=== PATIENT | male | born 1960 | race Hispanic/Latino ===

== ENCOUNTER 2016-09-09 10:09 | Inpatient (IN) | payer MEDICAID ==
--- NOTE | 2016-09-09 10:30 | C.PDOC ---
History Of Present Illness 56 year old patient presents to the ED complaining of depression and thoughts of dying. Patient is requesting to be admitted. Patient also notes he has not been eating well because he has no appetite. Patient denies all other complaints at this time. Time Seen by Provider: 09/09/16 10:29 Chief Complaint (Nursing): Psychiatric Evaluation History Per: Patient History/Exam Limitations: no limitations Onset/Duration Of Symptoms: Other Current Symptoms Are (Timing): Still Present Suicide/Self Injury Attempted (Context): None Modifying Factor(s): None Severity: None Pain Scale Rating Of: 0 Associated Symptoms: Depression, Suicidal Thoughts Recent travel outside of the [place]: No Past Medical History Reviewed: Historical Data, Nursing Documentation, Vital Signs Vital Signs: Last Vital Signs Temp 98.2 F 09/09/16 10:19 Pulse 71 09/09/16 10:19 Resp 17 09/09/16 10:19 BP 113/76 09/09/16 10:19 Pulse Ox 100 09/09/16 14:08 - Medical History PMH: Anxiety, Bipolar Disorder, Bronchitis, Depression, Pneumonia, Schizophrenia Surgical History: Appendectomy - [facility] Procedures PSYCHIAT DRUG THERAP NEC (12/05/14) VACCINATION NEC (12/16/14) Family History: States: Unknown Family Hx - Social History Hx Tobacco Use: No Hx Alcohol Use: Yes (drink 2 beers 3x a week) Hx Substance Use: Yes (coccaine) - Immunization History Hx Tetanus Toxoid Vaccination: No Hx Influenza Vaccination: No Hx Pneumococcal Vaccination: No Review Of Systems Except As Marked, All Systems Reviewed And Found Negative. Psych: Positive for: Suicidal ideation Physical Exam - Physical Exam Appears: Non-toxic, No Acute Distress Skin: Warm, Dry Head: Atraumatic, Normacephalic Oral Mucosa: Moist Neck: Normal ROM, Supple Chest: Symmetrical Cardiovascular: Rhythm Regular Respiratory: Normal Breath Sounds, No Rales, No Rhonchi, No Wheezing Back: Normal Inspection Extremity: Normal ROM Neurological/Psych: Oriented x3 Gait: Steady ED Course And Treatment - Laboratory Results Result Diagrams: 09/09/16 10:45 09/09/16 10:45 Lab Interpretation: Abnormal (hypokalemia) O2 Sat by Pulse Oximetry: 100 (room air) Pulse Ox Interpretation: Normal Progress Note: Plan: Labs. Pt seen by clearing tub worker, Dr. Smith accepted the pt. Recommend internal med consultation for hypokalemia. Disposition Counseled Patient/Family Regarding: Studies Performed, Diagnosis - Disposition Disposition: HOSPITALIZED Disposition Time: 14:02 Condition: STABLE - POA Present On Arrival: None - Clinical Impression Clinical Impression: Hypokalemia, Depression - PA / [employer] / Resident Statement MD/DO has reviewed & agrees with the documentation as recorded. - Scribe Statement The provider has reviewed the documentation as recorded by the Scribe Alexandra Tidwell All medical record entries made by the Scribe were at my direction and personally dictated by me. I have reviewed the chart and agree that the record accurately reflects my personal performance of the history, physical exam, medical decision making, and the department course for this patient. I have also personally directed, reviewed, and agree with the discharge instructions and disposition. Decision To Admit - Pt Status Changed To: Hospital Disposition Of: Inpatient - Admit Certification Admit to Inpatient:: After my assessment, the patient will require hospitalization for at least two midnights. This is because of the severity of symptoms shown, intensity of services needed, and/or the medical risk in this patient being treated as an outpatient. - InPatient: Physician Admission Certification: I certify that this patient requires 2 or more midnights of care for the following reason:: see the note - . Bed Request Type: Psychiatry Admitting Physician: Jeffery Marcum Patient Diagnosis: Hypokalemia, Depression
[2016-09-09 10:50] LABS: BASO % 0.4 % (0.0-2.0); EOS # 0.3 K/uL (0.0-0.7); EOS % 3.6 % (0.0-4.0); HEMATOCRIT 42.4 % (35.0-51.0); LYMPH # 2.2 K/uL (1.0-4.3); LYMPH % 27.8 % (20.0-40.0); MEAN CELL VOLUME 93.9 fL (80.0-94.0); MEAN CORPUSCULAR HEMOGLOBIN 31.4 pg (27.0-31.0); MEAN CORPUSCULAR HGB CONC 33.4 g/dL (33.0-37.0); MEAN PLATELET VOLUME 8.4 fL (7.2-11.7); MONO # 0.6 K/uL (0.0-0.8); MONO % 7.6 % (0.0-10.0); RED CELL DISTRIBUTION WIDTH 12.5 % (11.5-14.5); WHITE BLOOD COUNT 7.9 K/uL (4.8-10.8)
[2016-09-09 10:58] LABS: RBC URINE < 1 /hpf (0-3); URINE BILIRUBIN NEGATIVE (NEGATIVE); URINE BLOOD NEGATIVE (NEGATIVE); URINE COLOR Yellow (YELLOW); URINE GLUCOSE (UA) NORMAL (Normal); URINE KETONE NEGATIVE (NEGATIVE); URINE LEUKOCYTE ESTERASE NEG Leu/uL (Negative); URINE PROTEIN NEGATIVE (NEGATIVE); URINE UROBILINOGEN NORMAL mg/dL (0.2-1.0); WBC URINE 1 /hpf (0-5)
[2016-09-09 11:04] LABS: CHLORIDE 99 mmol/L (98-107); POTASSIUM 3.1 mmol/L (3.6-5.2); SODIUM 140 mmol/L (132-148)
[2016-09-09 11:06] LABS: AST/SGOT 27 U/L (17-59); BILIRUBIN,TOTAL 0.5 mg/dL (0.2-1.3); CARBON DIOXIDE 25 mmol/L (22-30); GFR AFRICAN-AMERICAN > 60
[2016-09-09 11:07] LABS: ALB/GLOB RATIO 1.5 (1.0-2.1); ALKALINE PHOSPHATASE 44 U/L (38-126); ALT/SGPT 19 U/L (21-72); BLOOD UREA NITROGEN 17 mg/dL (9-20); CALCIUM 8.3 mg/dl (8.6-10.4); GLUCOSE,RANDOM 102 mg/dL (75-110); TOTAL PROTEIN 7.1 g/dL (6.3-8.3)
[2016-09-09 11:08] LABS: ALCOHOL SERUM < 10 mg/dl (0-10)
[2016-09-09] MEDS ORDERED: Potassium Chloride 20 mEq/15 ml LIQ UD PO STA (14:00)
[2016-09-09] MEDS ORDERED: Potassium Chloride 20 mEq ER Tab PO ONE (14:22)
[2016-09-09] MEDS ORDERED: Potassium Chloride 20 mEq ER Tab PO STA (14:26)
--- NOTE | 2016-09-10 18:36 | PCM.PSYCH ---
Initial Psychiatric Evaluation - Initial Psychiatric Evaluation Type of Admission: Voluntary Legal Status: Capacity Chief Complaint (in patient's own words): "I'm depressed." History of Present Illness and Precipitating Events: Patient seen and evaluated, chart reviewed and discussed with nurse. He is a 56 yo LM, , has 3 adult children, is homeless, unemployed and receives social security. Patient denies any legal issues. Denies past suicidal attempts and wanting to hurt others. Feels disappointed he lost his apartment, denies feeling angry, agitated. Denies feelings of helplessness, hopelessness. Patient was experiencing anxiety and panic attacks which he says caused him to walk for 2 days, causing his body to be in pain. Reports sleeping well and good appetite. Was hospitalized at [facility] 1 year ago for depression, anxiety, panic attacks. Reports sometimes feeling people can read his mind and thoughts. Admits feeling strangers were following him and out to get him in the past, does not know why they were doing so, but does not currently feel this way. Denies auditory and visual hallucinations. Patient admits to using cocaine and alcohol. Reports current withdrawal symptom of body aches. Denies chest pain, shortness of breath, nausea, vomiting , abdominal pain, shaking, sweating, cold/heat intolerance. Began using cocaine via snorting 30 years ago, last used 2 days ago, averaged 1g per day. Began alcohol 3 years ago, last used 2 days ago, averages 1 beer per day. Denies heroin, marijuana, tobacco use. Patient was sober for 5 years during [id number] and is unsure why he relapsed. Detox at [facility] 3 years ago and [facility] [place]. States he has never gone to rehab. Plan after discharge includes [facility]. Current Medications: Active Medications Generic Name Dose Route Start Last Admin Trade Name Freq PRN Reason Stop Dose Admin Acetaminophen 650 mg 09/09/16 15:59 Tylenol 325mg Tab PO Q6 PRN Fever >100.4 F Aripiprazole 5 mg 09/09/16 22:00 09/09/16 21:18 Abilify PO 5 mg HS ROSS Administration Benztropine Mesylate 2 mg 09/09/16 15:59 Cogentin PO Q6 PRN Extra Pyramidal Symptoms Dicyclomine HCl 10 mg 09/09/16 15:59 Bentyl PO Q6 PRN Muscle spasm Diphenhydramine HCl 50 mg 09/09/16 15:59 Benadryl PO Q6 PRN Extra Pyramidal Symptoms Gabapentin 100 mg 09/09/16 18:00 09/10/16 18:01 Neurontin PO 100 mg TID ROSS Administration Haloperidol 5 mg 09/09/16 15:59 Haldol PO Q8 PRN Moderate Agitation Haloperidol Lactate 5 mg 09/09/16 15:59 Haldol IM Q8 PRN Moderate Agitation Lorazepam 1 mg 09/09/16 15:59 09/10/16 18:01 Ativan PO 1 mg Q6 PRN Administration Anxiety Paroxetine HCl 10 mg 09/10/16 10:00 09/10/16 10:14 Paxil PO 10 mg DAILY ROSS Administration Trazodone HCl 50 mg 09/09/16 22:00 09/09/16 21:16 Desyrel PO 50 mg HS ROSS Administration Past Psychiatric History - Past Psychiatric History Previous Treatment History: Inpatient Prior Professional Help: Psychiatrist Prior Psychiatric Treatment: Detox, Hospitalization At what hospital: [facility], [facility] Nature of Treatment: depression, anxiety, panic attacks, cocaine and alcohol abuse History of ETOH/Drug Use: Began using cocaine via snorting 30 years ago, last used 2 days ago, averaged 1g per day. Began alcohol 3 years ago, last used 2 days ago, averages 1 beer per day. Denies heroin, marijuana, tobacco use. Patient was sober for 5 years during [id number] and is unsure why he relapsed. Detox at [facility] 3 years ago and [facility] 2 years ago. States he has never gone to rehab. History of Family Illness: Family Psychiatric Hx: Brother is diagnosed with schizophrenia, sister is diagnosed with bipolar disorder and delusional disorder. Family Hx: Brother and sister abuse cocaine. Pertinent Medical Hx (Current Medical&Sleep Prob, Allergies): Allergies Allergy/AdvReac Type Severity Reaction Status Date / Time No Known Allergies Allergy Verified 09/09/16 10:16 PARoxetine [Paxil] 10 mg PO DAILY #30 tab 03/26/15 ARIPiprazole [Abilify] 10 mg PO DAILY 09/09/16 Aspirin [Ecotrin] 81 mg PO DAILY 09/09/16 Clopidogrel [Plavix] 75 mg PO DAILY 09/09/16 Allergies: NKDA PMH: 2 CVAs about 1.5 years ago, stage 2 gene mutation Medications: Abilify 10mg, Paxil 10mg, Plavix, Aspirin 81mg Psych Hx: Diagnosed with panic and anxiety disorder, bipolar disorder with psychotic features. Seen Dr. Rodriguez as psychiatrist. Psychiatric Hospitalization Hx: At [facility] 1 year ago for depression, anxiety, panic attacks. States he was hospitalized 15 times. Review of Systems - Psychiatric Psychiatric: Abnormal Sleep Pattern, Anxiety, Depression, Panic Attacks, Paranoia. absent: Hallucinations, Homicidal Ideation, Suicidal Ideation Mental Status Examination - Personal Presentation Personal Presentation: Looks stated age - Affect Affect: Constricted - Motor Activity Motor Activity: Calm - Reliability in Providing Information Reliability in Providing Information: Good - Speech Speech: Organized - Mood Mood: Depressed, Anxious - Formal Thought Process Formal Thought Process: Paranoia - Cognitive Functions Orientation: Person, Place, Situation, Time Sensorium: Alert Attention/Concentration: Attentive Estimate of Intelligence: Average Judgement: Intact, as evidence by: Insight regarding need for hospitalization Memory: Recent intact, as evidence by: Ability to recall events of the day, Remote intact, as evidenced by: Abilit to recall sig. life events - Risk Risk: Diminished functioning - Strength & Assets Inventory Strength & Assets Inventory: Cooperative DSM 5 DX - DSM 5 DSM 5 Diagnosis: Bipolar - depressed r/o Major dep with psychotic feat. r/o schizoaffective d/o Cocaine use d/o Cannabis use d/o Alcohol use d/o - Recommended/Plan of Treatment Treatment Recommendations and Plan of Treatment: Depression/Bipolar - Lexapro - Abilify -Attend groups -indiv tx NOÉ: -AL -Attend groups -Monitor wdw sx 33 min Projected ELOS: 5 days Prognosis: good - Smoking Cessation Smoking Cessation Initiated: Yes
--- NOTE | 2016-09-11 16:52 | PCM.PYCHPN ---
Psychiatric Progress Note - Psychiatric Progress Note Patient seen today, length of contact: 15 min Patient Chief Complaint: "I feel tired and depressed." Problems Identified/Issues Discussed: The pt is seen, chart reviewed, case discussed with staff. Pt feels tired and depressed. Feels anxious because he is homeless. Says detox is the same and his symptoms include general body pain, abdominal pain, body aches, headaches, fever, sweating, chills, cold and heat intolerance. Denies having a plan but has vague SI. Contracts for safety and will follow safety plan. Denies homicidal ideation. Reports hearing 1-2 male and female voices that yell and curse at him. Denies visual hallucinations. Admits to feeling like people are out to get him, following him, reading his mind and thoughts. Pt has difficulty sleeping and a good appetite. Denies side effects to medication. Plans to go to a rehab or a program after discharge. Support and psychoeducation given. Medication Change: Yes (increase abilify) Medical Record Reviewed: Yes Mental Status Examination - Cognitive Function Orientation: Person, Place, Situation, Time Memory: Intact Attention: Poor Concentration: Poor Association: WNL Fund of Knowledge: WNL - Mood Mood: Depressed, Anxious - Affect Affect: Constricted - Speech Speech: Soft - Formal Thought Process Formal Thought Process: Hallucinations, Paranoia - Suicidal Ideation Suicidal Ideation: Yes Plan: Denies plan. States "Won't do it". - Homicidal Ideation Homicidal Ideation: No Goal/Treatment Plan - Goal/Treatment Plan Need for Continued Stay: Severe depression anxiety, Discharge may exacerbated symptoms, Severe functional impairment Progress Toward Problem(s) and Goals/Treatment Plan: Depression/Bipolar - Lexapro 10 - Abilify increased to 15 -Attend groups -indiv tx NOÉ: -NE -Attend groups -Monitor wdw sx Estimated Date of D/C: 09/14/16
--- NOTE | 2016-09-12 16:44 | PCM.PYCHPN ---
Psychiatric Progress Note - Psychiatric Progress Note Patient seen today, length of contact: 15 min Patient Chief Complaint: "My of my body hurts" Problems Identified/Issues Discussed: The pt is seen, chart reviewed, case discussed with staff. Patient feels anxious about feeling homeless and is experiencing withdrawal symptoms including body aches, headache, abdominal pain, nausea. Reports detox is going well, slept well and has a good appetite. Reports a dry throat as a side effect of his medication. Patient no longer has auditory hallucinations, last heard voices yesterday morning. Admits to feeling like people are following him, out to get him, able to read his mind and thoughts. Plans after discharge include going to [facility]. General impression includes improvement in speech, organization, affect. Support and psychoeducation given. Medication Change: Yes (increase abilify) Medical Record Reviewed: Yes Mental Status Examination - Cognitive Function Orientation: Person, Place, Situation, Time Memory: Intact Attention: Poor Concentration: Poor Association: WNL Fund of Knowledge: WNL - Mood Mood: Depressed, Anxious - Affect Affect: Constricted - Speech Speech: Appropriate - Formal Thought Process Formal Thought Process: Paranoia - Suicidal Ideation Suicidal Ideation: No - Homicidal Ideation Homicidal Ideation: No Goal/Treatment Plan - Goal/Treatment Plan Need for Continued Stay: Severe depression anxiety, Discharge may exacerbated symptoms, Severe functional impairment Progress Toward Problem(s) and Goals/Treatment Plan: Depression/Bipolar - Lexapro 10 - Abilify increased to 15 -Attend groups -nikki mendez NOÉ: -AL -Attend groups -Monitor wdw sx Estimated Date of D/C: 09/14/16
[2016-09-13] MEDS ORDERED: Tramadol 25 mg PO PRN (11:14)
--- NOTE | 2016-09-13 14:04 | PCM.PYCHPN ---
Psychiatric Progress Note - Psychiatric Progress Note Patient seen today, length of contact: 15 min Patient Chief Complaint: "My body aches are getting better" Problems Identified/Issues Discussed: The pt is seen, chart reviewed, case discussed with staff. Patient says that his aches are slowly getting better, feels anxious, and reports feeling groggy due to the medication. Reports that detox is going well. Sleep and appetite are good. Denies any other withdrawal and medication symptoms. Admits to feeling like people are following him, out to get him, reading his minds and thoughts. Denies suicidal and homicidal ideation, auditory and visual hallucinations. Plans after discharge include either [facility] or [facility]. Medication Change: Yes (increase meds) Medical Record Reviewed: Yes Mental Status Examination - Cognitive Function Orientation: Person, Place, Situation, Time Memory: Intact Attention: Poor Concentration: Poor Association: WNL Fund of Knowledge: WNL - Mood Mood: Depressed, Anxious - Affect Affect: Constricted - Speech Speech: Appropriate - Formal Thought Process Formal Thought Process: Paranoia - Suicidal Ideation Suicidal Ideation: No - Homicidal Ideation Homicidal Ideation: No Goal/Treatment Plan - Goal/Treatment Plan Need for Continued Stay: Severe depression anxiety, Discharge may exacerbated symptoms, Severe functional impairment Progress Toward Problem(s) and Goals/Treatment Plan: Depression/Bipolar -Lexapro 20 -Abilify 20 -Attend groups -indiv tx NOÉ: -NC -Attend groups -Monitor wdw sx Estimated Date of D/C: 09/14/16
[2016-09-14 07:37] VITALS: O2SAT 100
--- NOTE | 2016-09-14 15:40 | PCM.PYCHPN ---
Psychiatric Progress Note - Psychiatric Progress Note Patient seen today, length of contact: 16 min Patient Chief Complaint: "I feel better than yesterday." Problems Identified/Issues Discussed: The pt is seen, chart reviewed, case discussed with staff. Patient states that he is feeling better than yesterday, and that the Flexeril is helping. Reports feeling groggy from the medication, and reports withdrawal symptoms including fever, sweating, chills. Patient feels anxious. Admits to hearing voices that are not really there, last heard yesterday afternoon, feeling like people are following him, out to get him, reading his minds and thoughts. Patient is sleeping 6 hours and has a good appetite. Denies suicidal and homicidal ideation, visual hallucinations. Plans after discharge includes staying at a friends house and then [facility]. Medication Change: Yes (increase meds) Medical Record Reviewed: Yes Mental Status Examination - Cognitive Function Orientation: Person, Place, Situation, Time Memory: Intact Attention: WNL Concentration: WNL Association: WNL Fund of Knowledge: WN - Mood Mood: Depressed, Anxious - Affect Affect: Constricted - Speech Speech: Appropriate - Formal Thought Process Formal Thought Process: Hallucinations, Paranoia - Suicidal Ideation Suicidal Ideation: No - Homicidal Ideation Homicidal Ideation: No Goal/Treatment Plan - Goal/Treatment Plan Need for Continued Stay: Severe depression anxiety, Discharge may exacerbated symptoms, Severe functional impairment Progress Toward Problem(s) and Goals/Treatment Plan: Depression/Bipolar -Lexapro 20 -Abilify 20 -Attend groups -indiv tx NOÉ: -OK -Attend groups -Monitor wdw sx Estimated Date of D/C: 09/16/16
[2016-09-15 12:13] LABS: CHLORIDE 97 mmol/L (98-107); POTASSIUM 4.1 mmol/L (3.6-5.2); SODIUM 135 mmol/L (132-148)
[2016-09-15 12:16] LABS: ALB/GLOB RATIO 1.3 (1.0-2.1); ALKALINE PHOSPHATASE 45 U/L (38-126); ALT/SGPT 17 U/L (21-72); AST/SGOT 23 U/L (17-59); BILIRUBIN,TOTAL 0.6 mg/dL (0.2-1.3); BLOOD UREA NITROGEN 20 mg/dL (9-20); CARBON DIOXIDE 29 mmol/L (22-30); GFR AFRICAN-AMERICAN > 60; GLUCOSE,RANDOM 97 mg/dL (75-110); TOTAL PROTEIN 6.9 g/dL (6.3-8.3)
[2016-09-15 12:17] LABS: CALCIUM 8.7 mg/dl (8.6-10.4)
[2016-09-15 12:48] LABS: THYROID STIMULATING HORMONE 2.55 mIU/L (0.46-4.68)
--- NOTE | 2016-09-15 14:42 | PCM.PYCHPN ---
Psychiatric Progress Note - Psychiatric Progress Note Patient seen today, length of contact: 15 min Patient Chief Complaint: "medication works great" Problems Identified/Issues Discussed: The pt is seen, chart reviewed, case discussed with staff. The pt is compliant with medications and reports no side-effects. Symptoms are improving but needs more time to stabilize. After care discussed, support and psychoeducation given. Medication Change: Yes (increase meds) Medical Record Reviewed: Yes Mental Status Examination - Cognitive Function Orientation: Person, Place, Situation, Time Memory: Intact Attention: WNL Concentration: WNL Association: WNL Fund of Knowledge: WNL - Mood Mood: Depressed, Anxious - Affect Affect: Constricted - Speech Speech: Appropriate - Formal Thought Process Formal Thought Process: Hallucinations, Paranoia - Suicidal Ideation Suicidal Ideation: No - Homicidal Ideation Homicidal Ideation: No Goal/Treatment Plan - Goal/Treatment Plan Need for Continued Stay: Severe depression anxiety, Discharge may exacerbated symptoms, Severe functional impairment Progress Toward Problem(s) and Goals/Treatment Plan: Depression/Bipolar -Lexapro 20 -Abilify 20 -Attend groups -indiv tx NOÉ: -NC -Attend groups -Monitor wdw sx Estimated Date of D/C: 09/16/16
[2016-09-16 08:18] VITALS: BP 96/60; PULSE 73; RESP 18; TEMP 97.7
--- NOTE | 2016-09-16 12:18 | PCM.PYCHDC ---
Mental Status Examination - Mental Status Examination Orientation: Person, Place, Situation, Time Memory: Intact Mood: Anxious Affect: Constricted Speech: Appropriate Attention: WNL Concentration: WNL Association: WNL Fund of Knowledge: WNL Formal Thought Process: No Impairment Suicidal Ideation: No Current Homicidal Ideation?: No Discharge Summary - Discharge Note Reason for Hospitalization: Feeling very depressed, suicidal Psychiatric History (includes Medical, Family, Personal Hx): depression, anxiety , panic attacks, cocaine and alcohol abuse Laboratory Data: Abnormal Lab Results 09/15/16 11:53 Carbon Dioxide 29 Anion Gap 13 BUN 20 Creatinine 0.9 Est GFR ( Amer) > 60 Est GFR (Non-Af Amer) > 60 Random Glucose 97 Calcium 8.7 Total Bilirubin 0.6 AST 23 ALT 17 L Alkaline Phosphatase 45 Total Protein 6.9 Globulin 3.0 Albumin/Globulin Ratio 1.3 TSH 3rd Generation 2.55 Consultations:: List each consultation separately and include: 1. Reason for request. 2. Findings. 3. Follow-up Summary of Hospital Course include:: 1. Description of specific treatment plan utilized for patients during their course of treatmen. 2. Summarize the time- course for resolution of acute symptoms and/or regressed behaviors. 3. Describe issues identified and worked on during hospitalization. 4. Describe medication utilized. 5. Describe medical problems identified and treated. 6. Reassessment of suicide risk Summary of Hospital Course: Patient seen and evaluated, chart reviewed and discussed with team. On admission: He is a 56 yo LM, , has 3 adult children, is homeless, unemployed and receives social security. Patient denies any legal issues. Denies past suicidal attempts and wanting to hurt others. Feels disappointed he lost his apartment, denies feeling angry, agitated. Denies feelings of helplessness, hopelessness. Patient was experiencing anxiety and panic attacks which he says caused him to walk for 2 days, causing his body to be in pain. Reports sleeping well and good appetite. Was hospitalized at [facility] 1 year ago for depression, anxiety, panic attacks. Reports sometimes feeling people can read his mind and thoughts. Admits feeling strangers were following him and out to get him in the past, does not know why they were doing so, but does not currently feel this way. Denies auditory and visual hallucinations. Patient admits to using cocaine and alcohol. Reports current withdrawal symptom of body aches. Denies chest pain, shortness of breath, nausea, vomiting , abdominal pain, shaking, sweating, cold/heat intolerance. Began using cocaine via snorting 30 years ago, last used 2 days ago, averaged 1g per day. Began alcohol 3 years ago, last used 2 days ago, averages 1 beer per day. Denies heroin, marijuana, tobacco use. Patient was sober for 5 years during [id number] and is unsure why he relapsed. Det[place] at [facility] 3 years ago [place] [facility]. States he has never gone to rehab. Hospital course: The pt was admitted and started on treatment with psychotherapy, support, psychoeducation and medications. LA and CBT used. The pt attended groups and activities, as well as milieu therapy. All the risks and benefits of medications are discussed and the patient understood and agreed. After care discussed with the patient. He was interested in [facility] for mostly being homeless. This weekend, he couldn;t wait until Saturday to finalize plans and left. He said he could go back to his previous outpt program or [facility]. Risks discussed. - Final Diagnosis (DSM 5) Condition upon Discharge: STABLE DSM 5: Bipolar - depressed r/o Major dep with psychotic feat. r/o schizoaffective d/o Cocaine use d/o Cannabis use d/o Alcohol use d/o Disposition: HOME/ ROUTINE Follow-up Treatment Plan: Continue below medications after discharge. Follow after care plan as discussed. Use relapse prevention skills Return to ER or call 911 if suicidal, homicidal or symptoms relapse. Stay away from stress, alcohol and drugs. Prescriptions/Medication Reconciliation: ARIPiprazole [Abilify] 20 mg PO HS #30 tab Aspirin [Aspirin Chewable] 81 mg PO DAILY #30 Clopidogrel [Plavix] 75 mg PO DAILY #30 tab Escitalopram [Lexapro] 20 mg PO DAILY #30 tab Gabapentin [Neurontin] 300 mg PO TID #90 cap - Smoking Cessation Smoking Cessation Medication prescribed: No - Antipsychotic Medications Pt discharged on 2 or more routine antipsychotic medications: No
== END 2016-09-16 16:48 | disposition home or self-care (01) | DRG 430 ==
LOC: C.ER 10:09 → C.9E 13:59 → C.5E 15:39
PROVIDERS: ADMIT Internal Medicine; ATTEND Emergency Medicine
DX: F31.9 Bipolar disorder, unspecified (principal); R45.851 Suicidal ideations; E87.6 Hypokalemia; Z59.0 Homelessness; F20.9 Schizophrenia, unspecified; F41.0 Panic disorder [episodic paroxysmal anxiety]; F41.8 Other specified anxiety disorders; F12.90 Cannabis use, unspecified, uncomplicated; Z81.8 Family history of other mental and behavioral disorders; Z86.73 Personal history of transient ischemic attack (TIA), and cerebral infarction without residual deficits

== ENCOUNTER 2017-02-13 00:15 | Inpatient (IN) | payer MEDICAID, OTHER ==
--- NOTE | 2017-02-13 00:34 | C.PDOC ---
History Of Present Illness Patient with a Hx of schizophrenia presents to the ER with a complaint of feeling depressed and hearing voices. Patient admits to cocaine use today; denies complaints at this time. Time Seen by Provider: 02/13/17 00:33 Chief Complaint (Nursing): Psychiatric Evaluation History Per: Patient History/Exam Limitations: no limitations Onset/Duration Of Symptoms: Hrs Current Symptoms Are (Timing): Still Present Suicide/Self Injury Attempted (Context): None Severity: None Pain Scale Rating Of: 0 Associated Symptoms: Depression, Other (Hearing voices). denies: Suicidal Thoughts, Suicidal Plan Involuntary Hold By: None Recent travel outside of the [place]: No Past Medical History Reviewed: Historical Data, Nursing Documentation, Vital Signs Vital Signs: Last Vital Signs Temp 97.5 F L 02/13/17 02:42 Pulse 73 02/13/17 02:42 Resp 19 02/13/17 02:42 BP 111/63 02/13/17 02:42 Pulse Ox 98 02/13/17 03:10 - Medical History PMH: Anxiety, Bipolar Disorder, Bronchitis, Depression, Pneumonia, Schizophrenia Surgical History: Appendectomy (1999) - [facility] Procedures PSYCHIAT DRUG THERAP NEC (12/05/14) VACCINATION NEC (12/16/14) Family History: States: No Known Family Hx - Social History Hx Tobacco Use: No Hx Alcohol Use: Yes Hx Substance Use: Yes - Immunization History Hx Tetanus Toxoid Vaccination: No Hx Influenza Vaccination: No Hx Pneumococcal Vaccination: No Review Of Systems Constitutional: Negative for: Fever, Chills Gastrointestinal: Negative for: Nausea, Vomiting, Diarrhea Psych: Positive for: Depression, Other (Hearing voices) Physical Exam - Physical Exam Appears: Non-toxic, No Acute Distress Skin: Warm, Dry Head: Normacephalic Oral Mucosa: Moist Cardiovascular: Rhythm Regular Respiratory: No Rales, No Rhonchi, No Wheezing Gastrointestinal/Abdominal: Soft, No Tenderness Neurological/Psych: Oriented x3 ED Course And Treatment - Laboratory Results Result Diagrams: 02/13/17 01:00 02/13/17 01:00 O2 Sat by Pulse Oximetry: 98 (Room air) Pulse Ox Interpretation: Normal Progress Note: Blood work and urinalysis ordered. Crisis notified. Disposition Discussed With : Nesha Rodriguez Comment: accepted the pt on his service and took over the care at 3 AM Counseled Patient/Family Regarding: Studies Performed, Diagnosis - Disposition Disposition: HOSPITALIZED Disposition Time: 00:34 Condition: FAIR - POA Present On Arrival: None - Clinical Impression Clinical Impression: Major depression - Scribe Statement The provider has reviewed the documentation as recorded by the Scribsenthil Higuera All medical record entries made by the Scribe were at my direction and personally dictated by me. I have reviewed the chart and agree that the record accurately reflects my personal performance of the history, physical exam, medical decision making, and the department course for this patient. I have also personally directed, reviewed, and agree with the discharge instructions and disposition. Decision To Admit - Pt Status Changed To: Hospital Disposition Of: Inpatient - Admit Certification Admit to Inpatient:: After my assessment, the patient will require hospitalization for at least two midnights. This is because of the severity of symptoms shown, intensity of services needed, and/or the medical risk in this patient being treated as an outpatient. - InPatient: Physician Admission Certification: I certify that this patient requires 2 or more midnights of care for the following reason:: After my assessment, the patient will require hospitalization for at least two midnights. This is because of the severity of symptoms shown, intensity of services needed, and/or the medical risk in this patient being treated as an outpatient. - . Bed Request Type: Psychiatry Admitting Physician: Nesha Rodriguez Patient Diagnosis: Major depression
[2017-02-13 01:05] LABS: BASO # 0.1 K/uL (0.0-0.2); BASO % 0.6 % (0.0-2.0); EOS # 0.2 K/uL (0.0-0.7); EOS % 2.3 % (0.0-4.0); HEMATOCRIT 38.9 % (35.0-51.0); LYMPH # 2.1 K/uL (1.0-4.3); LYMPH % 25.8 % (20.0-40.0); MEAN CELL VOLUME 94.8 fL (80.0-94.0); MEAN CORPUSCULAR HEMOGLOBIN 32.5 pg (27.0-31.0); MEAN CORPUSCULAR HGB CONC 34.3 g/dL (33.0-37.0); MEAN PLATELET VOLUME 8.8 fL (7.2-11.7); MONO # 0.6 K/uL (0.0-0.8); MONO % 7.7 % (0.0-10.0); RED CELL DISTRIBUTION WIDTH 13.1 % (11.5-14.5); WHITE BLOOD COUNT 8.1 K/uL (4.8-10.8)
[2017-02-13 01:09] LABS: RBC URINE < 1 /hpf (0-3); URINE BILIRUBIN NEGATIVE (NEGATIVE); URINE BLOOD NEGATIVE (NEGATIVE); URINE COLOR Yellow (YELLOW); URINE GLUCOSE (UA) NORMAL (Normal); URINE KETONE NEGATIVE (NEGATIVE); URINE LEUKOCYTE ESTERASE TRACE Leu/uL (Negative); URINE PROTEIN NEGATIVE (NEGATIVE); URINE UROBILINOGEN NORMAL mg/dL (0.2-1.0); WBC URINE 1 /hpf (0-5)
[2017-02-13 01:23] LABS: CHLORIDE 107 mmol/L (98-107)
[2017-02-13 01:25] LABS: SODIUM 140 mmol/L (132-148)
[2017-02-13 01:27] LABS: ALB/GLOB RATIO 1.5 (1.0-2.1); ALCOHOL SERUM 124 mg/dl (0-10); ALKALINE PHOSPHATASE 42 U/L (38-126); ALT/SGPT 31 U/L (21-72); AST/SGOT 35 U/L (17-59); BILIRUBIN,TOTAL 0.4 mg/dL (0.2-1.3); BLOOD UREA NITROGEN 23 mg/dL (9-20); CALCIUM 8.5 mg/dl (8.6-10.4); CARBON DIOXIDE 19 mmol/L (22-30); GFR AFRICAN-AMERICAN > 60; GLUCOSE,RANDOM 97 mg/dL (75-110); TOTAL PROTEIN 6.8 g/dL (6.3-8.3)
--- NOTE | 2017-02-13 04:14 | PCM.BM ---
<Bossman Fuentes - Last Filed: 02/13/17 04:12> Treatment Plan Problems - Problems identified on initial assessmt Major Depression Date Initiated: 02/13/17 Time Initiated: 03:50 Assessment reference: NA Status: Active Substance Abuse Date Initiated: 02/13/17 Time Initiated: 03:50 Assessment reference: NA Status: Active Suicidal Ideation Date Initiated: 02/13/17 Time Initiated: 03:50 Assessment reference: NA Status: Active Treatment assets and liabiliti Patient Assests: adapts well, cooperative, self-reliant, ADL independent, good support system, negotiates basic needs, cognitively intact Patient Liabilities: live alone, financial problems, relationship conflicts, substance abuse - Milieu Protocol Maintain good personal hygiene: daily Encourage regular showers, daily Remind patient to perform daily oral care, daily Assist patient to perform ADL's Maintain personal safety: every shift Educate patient to report safety concerns to staff, every shift Monitor environment for contraband/sharps Medication safety: Monitor for expected outcome, potential side effects: every shift, Assess barriers to learning: every shift, Assess readiness for medication education: every shift <Do Boo - Last Filed: 02/13/17 11:29> Family Contact Family involvement: Famliy/SO not involved - Goals for Treatment Patient goals for treatment: "I want to go back to [facility] for outpatient treatment." Discharge/Continuing Care - Education Needs Education Needs: Patient Medication, Patient Coping Skills - Discharge Discharge Criteria: Tolerates medication w/o severe side effects, No longer exhibiting s/s of withdrawal, Reduction of target symptoms Discharge to:: Home - Treatment Team Participation Discussed with Family/SO: No Was Patient/Family/SO present at Treatment Team Meeting: Yes <Tristan Galloway - Last Filed: 02/13/17 11:30> - Diagnosis (1) Schizoaffective disorder, bipolar type Status: Acute Interventions: Assess/adjust medications daily and/or as needed SEE patient on him individual basis 7x/week to assess status of hallucinations. Discuss risks, benefits, side effects and alternatives of medications. 02/13/17 11:28 (2) Cocaine use disorder, severe, dependence Status: Acute Interventions: Assess 7x/week regarding severity of withdrawal Educated regarding risks, benefits, side effects and alternatives of medications Used motivational interview for abstinence Used CBT for relapse prevention Medication management for withdrawal symptoms Encouraged medication assisted treatment 02/13/17 11:29 (3) Alcohol use disorder, severe, dependence Status: Acute Interventions: Assess 7x/week regarding severity of withdrawal Educated regarding risks, benefits, side effects and alternatives of medications Used motivational interview for abstinence Used CBT for relapse prevention Medication management for withdrawal symptoms Encouraged medication assisted treatment 02/13/17 11:29 (4) Cannabis use disorder, mild, abuse Status: Acute Interventions: Assess 7x/week regarding severity of withdrawal Educated regarding risks, benefits, side effects and alternatives of medications Used motivational interview for abstinence Used CBT for relapse prevention Medication management for withdrawal symptoms Encouraged medication assisted treatment 02/13/17 11:30
[2017-02-13] MEDS: Multiple Vitamins Tab PO SCH (11:54)
--- NOTE | 2017-02-13 16:37 | PCM.PSYCH ---
Initial Psychiatric Evaluation - Initial Psychiatric Evaluation Type of Admission: Voluntary Legal Status: Capacity Chief Complaint (in patient's own words): I was depressed, wanted to kill myself. History of Present Illness and Precipitating Events: Patient is a 56 years old, , 3 grown up children, unemployed, on SSI, lives alone with history of bipolar 1 disorder depressed with psychotic features and schizophrenia was admitted due to worsening psychiatric symptoms and withdrawing from alcohol and cocaine. Patient reported he was compliant with treatment until about a week ago when he lost his medications. Reported he was going to [facility] and was taking Abilify 20 mg and Paxil 20 mg. He was on this medication for last 2-3 years and was stable. Patient reported that he started feeling depressed with decreased sleep, increased energy, decreased appetite, lost about 40 pounds in 1 year. Frequent suicidal ideations with plan to jump from [facility]. Patient reported he went to [facility] but scared and came back. History of one previous suicidal attempt by drowning himself in the bathtub, 15 years ago. Brother intervened, saved him. He was admitted in the hospital. History of more than 15 inpatient psychiatric hospitalization with 4 at [facility]. His last admission at [facility] was in September 2016. Denied any homicidal ideations. Reported having auditory hallucinations telling him what to do. Also history of visual hallucinations at times. Patient has history of manic episodes in the past. He was using cocaine. Started at the age of 16 years, increased gradually to 1- 2 g daily, smoking. Last use was yesterday. His longest period of abstinence was 5 years from [id number]. Alcohol: He started drinking alcohol at the age of 16 years increased gradually. Currently he was drinking 4 cans of beer each of 24 ounces and 1 pint of vodka daily. Last use reported yesterday. History of seizures one year ago because of alcohol. Heroin: Started using heroin 10 years ago. Reported he is using once every 2 weeks, to bags each time. Sniffing. Last use a few days ago. Does not smoke cigarettes. Patient has history of appendectomy and right inguinal hernia repair. He was born in [place]. Migrated to [facility] in [facility] with parents. He has 10th grade of education. Last job was 2 years ago. Currently not working. On SSI. His height is 6 feet and weight is 150 pounds. Current Medications: Active Medications Generic Name Dose Route Start Last Admin Trade Name Freq PRN Reason Stop Dose Admin Chlordiazepoxide 25 mg 02/13/17 08:59 Librium PO Q6H PRN Alcohol Withdrawal Clopidogrel Bisulfate 75 mg 02/13/17 10:00 02/13/17 14:14 Plavix PO 75 mg DAILY ROSS Administration Escitalopram Oxalate 10 mg 02/13/17 10:00 02/13/17 11:54 Lexapro PO 10 mg DAILY ROSS Administration Folic Acid 1 mg 02/13/17 10:00 02/13/17 11:54 Folic Acid PO 1 mg DAILY ROSS Administration Gabapentin 300 mg 02/13/17 10:00 02/13/17 11:54 Neurontin PO 300 mg BID ROSS Administration Hydroxyzine HCl 50 mg 02/13/17 08:56 02/13/17 11:54 Atarax PO 50 mg Q6H PRN Administration Anxiety Multivitamins 1 tab 02/13/17 10:00 02/13/17 11:54 Hexavitamin PO 1 tab DAILY ROSS Administration Thiamine HCl 100 mg 02/13/17 10:00 02/13/17 11:54 Vitamin B1 Tab PO 100 mg DAILY ROSS Administration Trazodone HCl 100 mg 02/13/17 08:56 Desyrel PO HS PRN Insomnia Past Psychiatric History - Past Psychiatric History Previous Treatment History: Inpatient History of Abuse: None Reported History of ETOH/Drug Use: See HPI History of Family Illness: Reported his brother and sister has history of schizophrenia and his mother has history of anxiety. Also reported that his brother, sister and mother also has history of cocaine and alcohol use. Pertinent Medical Hx (Current Medical&Sleep Prob, Allergies): Allergies Allergy/AdvReac Type Severity Reaction Status Date / Time No Known Allergies Allergy Verified 01/11/17 23:58 Aspirin [Ecotrin] 81 mg PO DAILY 09/09/16 Clopidogrel [Plavix] 75 mg PO DAILY 09/09/16 ARIPiprazole [Abilify] 20 mg PO HS #30 tab 09/16/16 Aspirin [Aspirin Chewable] 81 mg PO DAILY #30 09/16/16 Clopidogrel [Plavix] 75 mg PO DAILY #30 tab 09/16/16 Escitalopram [Lexapro] 20 mg PO DAILY #30 tab 09/16/16 Gabapentin [Neurontin] 300 mg PO TID #90 cap 09/16/16 Review of Systems - Psychiatric Psychiatric: Depression Mental Status Examination - Personal Presentation Personal Presentation: Looks stated age - Affect Affect: Depressed - Motor Activity Motor Activity: Calm - Reliability in Providing Information Reliability in Providing Information: Fair - Speech Speech: Organized - Mood Mood: Depressed - Formal Thought Process Formal Thought Process: No Impairment - Hallucinations/Delusions Hallucinations: Other (None reported) Delusions: Other - Obsessions/Compulsions Obsessions: None Compulsions: None - Cognitive Functions Orientation: Person, Place, Situation, Time Sensorium: Alert Attention/Concentration: Attentive Abstract Thinking: [place] Estimate of Intelligence: Average Judgement: Intact, as evidence by: Insight regarding need for hospitalization Memory: Recent intact, as evidence by: 3/3 object recall, Remote intact, as evidenced by: Ability to recall historical events - Risk Risk: Withdrawal, Diminished functioning - Strength & Assets Inventory Strength & Assets Inventory: Cooperative - Limitations Limitations: Living alone DSM 5 DX - DSM 5 DSM 5 Diagnosis: Bipolar 1 disorder depressed with psychotic features Cocaine use disorder severe Alcohol use disorder severe Opiate use disorder - Recommended/Plan of Treatment Treatment Recommendations and Plan of Treatment: Patient education Supportive therapy We'll start Ativan and other supportive medications We'll start Abilify and Paxil Group therapy Motivation interview for abstinence CBT for relapse prevention Projected ELOS: 8-10 days - Smoking Cessation Smoking Cessation Initiated: No Reason for not providing: Patient doesn't smoke cigarettes
[2017-02-14] MEDS: Multiple Vitamins Tab PO SCH (09:43)
[2017-02-14] MEDS ORDERED: Influenza Vaccine 60 mcg/0.5 mL SYR (4YR UP) IM ONE (10:00)
--- NOTE | 2017-02-14 17:15 | PCM.PYCHPN ---
Psychiatric Progress Note - Psychiatric Progress Note Patient seen today, length of contact: 15 Minutes Patient Chief Complaint: I'm feeling little better. Problems Identified/Issues Discussed: Patient seen. Chart reviewed. Case discussed with the staff. Issues related to illness and treatment were discussed with the patient. Reported compliant with treatment with no adverse affects Tolerating treatment very well. Reported feeling better, still has withdrawal symptoms. Aftercare discussed with the patient. At the time of evaluation, patient was awake alert oriented 3, had no delusions , no auditory visual hallucinations, no suicidal ideations or homicidal ideations. Medical Problems: None reported Diagnostic Results: Reviewed DSM 5 Symptoms Update: Some improvement with treatment Medication Change: No Medical Record Reviewed: Yes Mental Status Examination - Cognitive Function Orientation: Person, Place, Situation, Time Memory: Intact Attention: WNL Concentration: WNL Association: WNL Fund of Knowledge: [facility] Decription of patient's judgement and insights: Fair - Mood Mood: Anxious - Affect Affect: Other - Speech Speech: Appropriate - Formal Thought Process Formal Thought Process: No Impairment Psychotic Thoughts and Behaviors: None - Suicidal Ideation Suicidal Ideation: No - Homicidal Ideation Homicidal Ideation: No Goal/Treatment Plan - Goal/Treatment Plan Need for Continued Stay: Remain at risks for inpatient hospitalization, Discharge may exacerbated symptoms, Severe functional impairment Progress Toward Problem(s) and Goals/Treatment Plan: Patient education Supportive therapy Continue treatment as before Motivation interview for abstinence CBT for relapse prevention Estimated Date of D/C: 02/20/17 - Smoking Cessation Smoking Cessation Initiated: No
[2017-02-15] MEDS: Multiple Vitamins Tab PO SCH (09:42)
--- NOTE | 2017-02-15 12:56 | PCM.PYCHPN ---
Psychiatric Progress Note - Psychiatric Progress Note Patient seen today, length of contact: 15 Minutes Patient Chief Complaint: I'm feeling better. Problems Identified/Issues Discussed: Patient seen. Chart reviewed. Case discussed with the staff. Issues related to illness and treatment were discussed with the patient. Reported compliant with treatment with no adverse affects Tolerating treatment very well. Reported feeling better, still has withdrawal symptoms but less than before. Aftercare discussed with the patient. At the time of evaluation, patient was awake alert oriented 3, had no delusions , no auditory visual hallucinations, no suicidal ideations or homicidal ideations. Medical Problems: None reported Diagnostic Results: Reviewed DSM 5 Symptoms Update: mproving with treatment Medication Change: No Medical Record Reviewed: Yes Mental Status Examination - Cognitive Function Orientation: Person, Place, Situation, Time Memory: Intact Attention: WNL Concentration: WNL Association: WNL Fund of Knowledge: WN Decription of patient's judgement and insights: Fair - Mood Mood: Anxious (less than before) - Affect Affect: Other - Speech Speech: Appropriate - Formal Thought Process Formal Thought Process: No Impairment Psychotic Thoughts and Behaviors: None - Suicidal Ideation Suicidal Ideation: No - Homicidal Ideation Homicidal Ideation: No Goal/Treatment Plan - Goal/Treatment Plan Need for Continued Stay: Remain at risks for inpatient hospitalization, Discharge may exacerbated symptoms, Severe functional impairment Progress Toward Problem(s) and Goals/Treatment Plan: Patient education Supportive therapy Continue treatment as before Motivation interview for abstinence CBT for relapse prevention Estimated Date of D/C: 02/20/17 - Smoking Cessation Smoking Cessation Initiated: No
[2017-02-16] MEDS: Multiple Vitamins Tab PO SCH (08:59)
--- NOTE | 2017-02-16 13:15 | PCM.PYCHPN ---
Psychiatric Progress Note - Psychiatric Progress Note Patient seen today, length of contact: 15 Minutes Patient Chief Complaint: I'm feeling better. Problems Identified/Issues Discussed: Patient seen. Chart reviewed. Case discussed with the staff. Issues related to illness and treatment were discussed with the patient. Reported compliant with treatment with no adverse affects Tolerating treatment very well. Reported feeling better, still has withdrawal symptoms but less than before. Aftercare discussed with the patient. At the time of evaluation, patient was awake alert oriented 3, had no delusions , no auditory visual hallucinations, no suicidal ideations or homicidal ideations. Medical Problems: None reported Diagnostic Results: Reviewed DSM 5 Symptoms Update: Improvement with treatment Medication Change: No Medical Record Reviewed: Yes Mental Status Examination - Cognitive Function Orientation: Person, Place, Situation, Time Memory: Intact Attention: WNL Concentration: WNL Association: [facility] Fund of Knowledge: [facility] Decription of patient's judgement and insights: Fair - Mood Mood: Anxious (less than before) - Affect Affect: Other - Speech Speech: Appropriate - Formal Thought Process Formal Thought Process: No Impairment Psychotic Thoughts and Behaviors: None - Suicidal Ideation Suicidal Ideation: No - Homicidal Ideation Homicidal Ideation: No Goal/Treatment Plan - Goal/Treatment Plan Need for Continued Stay: Remain at risks for inpatient hospitalization, Discharge may exacerbated symptoms, Severe functional impairment Progress Toward Problem(s) and Goals/Treatment Plan: Patient education Supportive therapy Continue treatment as before Motivation interview for abstinence CBT for relapse prevention Estimated Date of D/C: 02/20/17 - Smoking Cessation Smoking Cessation Initiated: No
[2017-02-17] MEDS: Multiple Vitamins Tab PO SCH (10:08)
--- NOTE | 2017-02-17 14:44 | PCM.PYCHPN ---
Psychiatric Progress Note - Psychiatric Progress Note Patient seen today, length of contact: 15 Minutes Patient Chief Complaint: I'm feeling better. Problems Identified/Issues Discussed: Patient seen. Chart reviewed. Case discussed with the staff. Issues related to illness and treatment were discussed with the patient. Reported compliant with treatment with no adverse affects Tolerating treatment very well. Reported feeling better, better sleep and mood. Aftercare discussed with the patient. At the time of evaluation, patient was awake alert oriented 3, had no delusions , no auditory visual hallucinations, no suicidal ideations or homicidal ideations. Medical Problems: None reported Diagnostic Results: Reviewed DSM 5 Symptoms Update: Improving with treatment Medication Change: No Medical Record Reviewed: Yes Mental Status Examination - Cognitive Function Orientation: Person, Place, Situation, Time Memory: Intact Attention: WNL Concentration: WNL Association: WNL Fund of Knowledge: [facility] Decription of patient's judgement and insights: Fair - Mood Mood: Anxious (less than before) - Affect Affect: Other - Speech Speech: Appropriate - Formal Thought Process Formal Thought Process: No Impairment Psychotic Thoughts and Behaviors: None - Suicidal Ideation Suicidal Ideation: No - Homicidal Ideation Homicidal Ideation: No Goal/Treatment Plan - Goal/Treatment Plan Need for Continued Stay: Remain at risks for inpatient hospitalization, Discharge may exacerbated symptoms, Severe functional impairment Progress Toward Problem(s) and Goals/Treatment Plan: Patient education Supportive therapy Continue treatment as before Motivation interview for abstinence CBT for relapse prevention Estimated Date of D/C: 02/20/17 - Smoking Cessation Smoking Cessation Initiated: No
[2017-02-18] MEDS: Multiple Vitamins Tab PO SCH (10:08)
--- NOTE | 2017-02-18 10:13 | PCM.PYCHPN ---
Psychiatric Progress Note - Psychiatric Progress Note Patient seen today, length of contact: 16 mins Patient Chief Complaint: "I did not sleep so well last night doc". Problems Identified/Issues Discussed: The pt is seen, chart reviewed, case discussed with staff. Pt reports that despite taking Trazadone the previous night to aid with sleep, he did not sleep well throughout the night. Pt also reports that although his mood has improved he still is experiencing panic attacks, last episode occurring last night. Pt states "I'll lay down in bed and think of someone and if I can not remember their names I'll have a panic attack". He reports pacing back and forth in the hallways. He denies SI or any hallucinations. The pt is compliant with medications and reports no side-effects. Symptoms are improving but needs more time to stabilize. After care discussed, support and psychoeducation given. Pt states that upon discharge he would like to attend [facility], pt is encouraged to speak with counselors and SW to help him set this up. Medication Change: No Medical Record Reviewed: Yes Mental Status Examination - Cognitive Function Orientation: Person, Place, Situation, Time Memory: Intact Attention: WNL Concentration: WNL Association: WNL Fund of Knowledge: WNL - Mood Mood: Neutral - Affect Affect: Broad - Speech Speech: Appropriate - Formal Thought Process Formal Thought Process: No Impairment - Suicidal Ideation Suicidal Ideation: No - Homicidal Ideation Homicidal Ideation: No Goal/Treatment Plan - Goal/Treatment Plan Need for Continued Stay: Remain at risks for inpatient hospitalization, Discharge may exacerbated symptoms Progress Toward Problem(s) and Goals/Treatment Plan: Continue medications Support and psychoeducation daily Attend groups and activities daily After care planning by ARCHANA Estimated Date of D/C: 02/20/17
[2017-02-19 07:26] VITALS: O2SAT 97
[2017-02-19] MEDS: Multiple Vitamins Tab PO SCH (10:04)
--- NOTE | 2017-02-19 16:04 | PCM.PYCHPN ---
Psychiatric Progress Note - Psychiatric Progress Note Patient seen today, length of contact: 17 mins Patient Chief Complaint: " I'm getting better" Problems Identified/Issues Discussed: The pt is seen, chart reviewed, case discussed with staff. Pt reports he still having trouble sleeping at night and therefore, he paces throughout the night. However, his appetite is good and is eating well. He also claims that compared to previous days his mood is improving, stating " If I came in at 1 (being the worst) and 10 the best, Im currently at like a 5 or 6". He denies SI or any hallucinations. The pt is compliant with medications and reports no side-effects. Symptoms are improving but needs more time to stabilize. After care discussed, support and psychoeducation given. Pt states that upon discharge he will be staying with a friend with a friend that is coming up from [place] and while there he will be following up with the [place] outpatient clinic. Pt is encouraged to do so and speak to counselors or SW if needed. Medication Change: No Medical Record Reviewed: Yes Mental Status Examination - Cognitive Function Orientation: Person, Place, Situation, Time Memory: Intact Attention: WNL Concentration: WNL Association: WNL Fund of Knowledge: WNL - Mood Mood: Neutral - Affect Affect: Broad - Speech Speech: Appropriate - Formal Thought Process Formal Thought Process: No Impairment - Suicidal Ideation Suicidal Ideation: No - Homicidal Ideation Homicidal Ideation: No Goal/Treatment Plan - Goal/Treatment Plan Need for Continued Stay: Remain at risks for inpatient hospitalization, Discharge may exacerbated symptoms Progress Toward Problem(s) and Goals/Treatment Plan: Continue medications Support and psychoeducation daily Attend groups and activities daily After care planning by SW Estimated Date of D/C: 02/22/17
[2017-02-20 07:27] VITALS: RESP 19
[2017-02-20] MEDS: Multiple Vitamins Tab PO SCH (10:58)
--- NOTE | 2017-02-20 11:24 | PCM.PYCHPN ---
Psychiatric Progress Note - Psychiatric Progress Note Patient seen today, length of contact: 18 mins Patient Chief Complaint: "I'm doing but good, but I need to speak with the social work administrator" Problems Identified/Issues Discussed: The pt is seen, chart reviewed, case discussed with staff. Pt reports that he was able to sleep well and throughout the night. He reports eating well and when asked about his mood he states "I'm good alright you know". The pt is compliant with medications and reports no side-effects. Symptoms are improving but needs more time to stabilize. After care discussed, support and psychoeducation given. Pt wants to speak with ARCHANA because he is unaware of the appointment made for him at [facility]. Medication Change: Yes (Increase Trazadone ) Medical Record Reviewed: Yes Mental Status Examination - Cognitive Function Orientation: Person, Place, Situation, Time Memory: Intact Attention: WNL Concentration: WNL Association: WNL Fund of Knowledge: WNL - Mood Mood: Neutral - Affect Affect: Broad - Speech Speech: Appropriate - Formal Thought Process Formal Thought Process: No Impairment - Suicidal Ideation Suicidal Ideation: No - Homicidal Ideation Homicidal Ideation: No Goal/Treatment Plan - Goal/Treatment Plan Need for Continued Stay: Remain at risks for inpatient hospitalization, Discharge may exacerbated symptoms Progress Toward Problem(s) and Goals/Treatment Plan: Start: Trazadone 200mg PO HS PRN Continue medications Support and psychoeducation daily Attend groups and activities daily After care planning by ARCHANA 18 mins Estimated Date of D/C: 02/21/17
[2017-02-21] MEDS: Multiple Vitamins Tab PO SCH (10:40)
--- NOTE | 2017-02-21 11:28 | PCM.PYCHPN ---
Psychiatric Progress Note - Psychiatric Progress Note Patient seen today, length of contact: 16 mins Patient Chief Complaint: " I did not sleep to good last night" Problems Identified/Issues Discussed: The pt is seen, chart reviewed, case discussed with staff. Pt reports that he did not sleep well last night and is feeling very tired this morning. He reports that his mood is good today and that it has been improving since his arrival. The pt is compliant with medications and reports no side-effects. Symptoms are improving but needs more time to stabilize. After care discussed, support and psychoeducation given. Pt will attend [facility] upon his discharge and will be staying with long time friend while he reapplies for income assistance and fills paperwork to obtain ID and other personal paperwork. Medication Change: No Medical Record Reviewed: Yes Mental Status Examination - Cognitive Function Orientation: Person, Place, Situation, Time Memory: Intact Attention: WNL Concentration: WNL Association: WNL Fund of Knowledge: WNL - Mood Mood: Neutral - Affect Affect: Broad - Speech Speech: Appropriate - Formal Thought Process Formal Thought Process: No Impairment - Suicidal Ideation Suicidal Ideation: No - Homicidal Ideation Homicidal Ideation: No Goal/Treatment Plan - Goal/Treatment Plan Need for Continued Stay: Remain at risks for inpatient hospitalization, Discharge may exacerbated symptoms Progress Toward Problem(s) and Goals/Treatment Plan: Continue all other medications as needed Support and psychoeducation daily Attend groups and activities daily After care planning by ARCHANA 16 mins Estimated Date of D/C: 02/22/17
[2017-02-22 07:47] VITALS: BP 108/78; PULSE 63; TEMP 98.1
[2017-02-22] MEDS: Multiple Vitamins Tab PO SCH (10:03)
--- NOTE | 2017-02-22 11:45 | PCM.PYCHDC ---
Mental Status Examination - Mental Status Examination Orientation: Person, Place, Situation, Time Memory: Intact Mood: Neutral Affect: Other (Appropriate) Speech: Appropriate Attention: WNL Concentration: WNL Association: WNL Fund of Knowledge: WNL Formal Thought Process: No Impairment Description of patient's judgement and insight: Fair Psychotic Thoughts and Behaviors: None Suicidal Ideation: No Current Homicidal Ideation?: No Discharge Summary - Discharge Note Reason for Hospitalization: Bipolar disorder Cocaine use is Alcohol use disorder Opiate use disorder Laboratory Data: Reviewed Consultations:: List each consultation separately and include: 1. Reason for request. 2. Findings. 3. Follow-up Summary of Hospital Course include:: 1. Description of specific treatment plan utilized for patients during their course of treatmen. 2. Summarize the time- course for resolution of acute symptoms and/or regressed behaviors. 3. Describe issues identified and worked on during hospitalization. 4. Describe medication utilized. 5. Describe medical problems identified and treated. 6. Reassessment of suicide risk Summary of Hospital Course: Patient is a 56 years old, , 3 grown up children, unemployed, on SSI, lives alone with history of bipolar 1 disorder depressed with psychotic features and schizophrenia was admitted due to worsening psychiatric symptoms and withdrawing from alcohol and cocaine. Patient reported he was compliant with treatment until about a week ago when he lost his medications. Reported he was going to [facility] and was taking Abilify 20 mg and Paxil 20 mg. He was on this medication for last 2-3 years and was stable. Patient reported that he started feeling depressed with decreased sleep, increased energy, decreased appetite, lost about 40 pounds in 1 year. Frequent suicidal ideations with plan to jump [facility]. Patient reported [facility] but scared and came back. History of one previous suicidal attempt by drowning himself in the bathtub, 15 years ago. Brother intervened, saved him. He was admitted in the hospital. History of more than 15 inpatient psychiatric hospitalization with 4 at [facility]. His last admission at [facility] was in September 2016. Denied any homicidal ideations. Reported having auditory hallucinations telling him what to do. Also history of visual hallucinations at times. Patient has history of manic episodes in the past. He was using cocaine. Started at the age of 16 years, increased gradually to 1- 2 g daily, smoking. Last use was yesterday. His longest period of abstinence was 5 years from [id number]. Alcohol: He started drinking alcohol at the age of 16 years increased gradually. Currently he was drinking 4 cans of beer each of 24 ounces and 1 pint of vodka daily. Last use reported yesterday. History of seizures one year ago because of alcohol. Heroin: Started using heroin 10 years ago. Reported he is using once every 2 weeks, to bags each time. Sniffing. Last use a few days ago. Does not smoke cigarettes. Patient has history of appendectomy and right inguinal hernia repair. He was born in [place]. Migrated to [facility] in [place] with parents. He has 10th grade of education. Last job was 2 years ago. Currently not working. On SSI. His height is 6 feet and weight is 150 pounds. During his stay on the unit. Patient was started on treatment with methadone. Librium. At this psychotic, mood stabilized and other when necessary medications. During his stay on the unit patient was attending groups and other social activities on the unit. With the above treatment, patient started feeling better, no withdrawal symptoms, stable mood. Today patient was stable and ready for discharge. At the time of evaluation and discharge, patient was awake alert oriented 3, had no delusions, no auditory or visual hallucinations , no suicidal ideations or homicidal ideations. Patient was discharged in a stable condition. Patient will have follow-up at [facility]. - Diagnosis (1) Schizoaffective disorder, bipolar type Current Visit: Yes Status: Acute (2) Cocaine use disorder, severe, dependence Current Visit: Yes Status: Acute (3) Alcohol use disorder, severe, dependence Current Visit: Yes Status: Acute (4) Cannabis use disorder, mild, abuse Current Visit: Yes Status: Acute - Final Diagnosis (DSM 5) Condition upon Discharge: GOOD Disposition: HOME/ ROUTINE Follow-up Treatment Plan: [facility] Prescriptions/Medication Reconciliation: Clopidogrel [Plavix] 75 mg PO DAILY #30 tab Escitalopram [Lexapro] 20 mg PO DAILY #30 tab Gabapentin [Neurontin] 300 mg PO BID #60 cap traZODone [Desyrel] 100 mg PO HS PRN #60 tab PRN Reason: Insomnia - Smoking Cessation Smoking Cessation Medication prescribed: No - Antipsychotic Medications Pt discharged on 2 or more routine antipsychotic medications: No
== END 2017-02-22 12:00 | disposition home or self-care (01) | DRG 430 ==
LOC: C.ER 00:15 → C.5E 03:00
PROVIDERS: ADMIT Psychiatry & Neurology Psychiatry; ATTEND Psychiatry & Neurology Psychiatry
PROC: HZ2ZZZZ Detoxification Services for Substance Abuse Treatment (ICD-10-PCS; principal; 2017-02-13)
PROC: HZ52ZZZ Individual Psychotherapy for Substance Abuse Treatment, Cognitive-Behavioral (ICD-10-PCS; 2017-02-13)
PROC: HZ59ZZZ Individual Psychotherapy for Substance Abuse Treatment, Supportive (ICD-10-PCS; 2017-02-13)
PROC: HZ56ZZZ Individual Psychotherapy for Substance Abuse Treatment, Psychoeducation (ICD-10-PCS; 2017-02-13)
PROC: HZ42ZZZ Group Counseling for Substance Abuse Treatment, Cognitive-Behavioral (ICD-10-PCS; 2017-02-13)
PROC: HZ46ZZZ Group Counseling for Substance Abuse Treatment, Psychoeducation (ICD-10-PCS; 2017-02-13)
DX: F31.5 Bipolar disorder, current episode depressed, severe, with psychotic features (principal); R45.851 Suicidal ideations; F10.230 Alcohol dependence with withdrawal, uncomplicated; F14.23 Cocaine dependence with withdrawal; F11.90 Opioid use, unspecified, uncomplicated; F41.9 Anxiety disorder, unspecified; F17.210 Nicotine dependence, cigarettes, uncomplicated; Y90.6 Blood alcohol level of 120-199 mg/100 ml

== ENCOUNTER 2017-04-08 16:55 | Inpatient (IN) | payer MEDICAID, OTHER ==
--- NOTE | 2017-04-08 17:41 | C.PDOC ---
History Of Present Illness <Aliyah Burnett - Last Filed: 04/08/17 18:31> <Venancio Higginbotham - Last Filed: 04/08/17 19:18> 56 year old male with a history of anxiety, depression, schizophrenia, and cocain abuse that presents to the ED with a chief complaint of panic attacks and depression. Patient admits (+) suicidal ideation. Patient has multiple prior visit to ED and psych admission due to same complaints. At present time, pt appears appropriate, cooperative, not in nay apparent distress. Pt denies any active physical complaints. (Aliyah Burnett) History Per: Patient History/Exam Limitations: no limitations Onset/Duration Of Symptoms: Persistent <Aliyah Burnett - Last Filed: 04/08/17 18:31> <Venancio Higginbotham - Last Filed: 04/08/17 19:18> Time Seen by Provider: 04/08/17 17:38 Chief Complaint (Nursing): Psychiatric Evaluation Past Medical History Reviewed: Historical Data, Nursing Documentation, Vital Signs - Medical History PMH: Anxiety, Bipolar Disorder, Bronchitis, Depression, Pneumonia, Schizophrenia , Seizures (ETOH related) Surgical History: Appendectomy (1999) Family History: States: No Known Family Hx - Social History Hx Tobacco Use: No Hx Alcohol Use: Yes Hx Substance Use: Yes - Immunization History Hx Tetanus Toxoid Vaccination: No Hx Influenza Vaccination: No Hx Pneumococcal Vaccination: No <Aliyah Burnett - Last Filed: 04/08/17 18:31> Vital Signs: Last Vital Signs Temp 97.7 F 04/08/17 17:01 Pulse 72 04/08/17 17:01 Resp 18 04/08/17 17:01 BP 107/71 04/08/17 17:01 Pulse Ox 99 04/08/17 18:34 - [facility] DETOXIFICATION SERVICES FOR SUBSTANCE ABUSE TREATMENT (02/13/17) GROUP PRIMARY CLASS TEACHER FOR SUBSTANCE ABUSE TREATMENT, PSYCHOEDUCATION (02/13/17) GROUP PRIMARY CLASS TEACHER FOR SUBSTANCE ABUSE, COGNITIVE BEHAVIORAL (02/13/17) INDIV PSYCHOTHERAPY FOR SUBSTANCE ABUSE TREATMENT, SUPPORT (02/13/17) INDIV PSYCHOTHERAPY FOR SUBSTANCE ABUSE, COGNITIV BEHAVIORAL (02/13/17) INDIV PSYCHOTHERAPY FOR SUBSTANCE ABUSE, PSYCHOEDUCATION (02/13/17) PSYCHIAT DRUG THERAP NEC (12/05/14) VACCINATION NEC (12/16/14) Review Of Systems Except As Marked, All Systems Reviewed And Found Negative. Constitutional: Positive for: Other (Panic attack). Negative for: Fever Cardiovascular: Negative for: Chest Pain Respiratory: Negative for: Shortness of Breath Psych: Positive for: Depression, Suicidal ideation <Aliyah Burnett - Last Filed: 04/08/17 18:31> Physical Exam - Physical Exam Appears: Well, No Acute Distress Skin: Normal Color, Warm, Dry, No Rash Head: Atraumatic, Normacephalic Eye(s): bilateral: PERRL Nose: No Flaring, No Discharge Oral Mucosa: Moist, No Drooling Tongue: Normal Appearing Lips: Normal Appearing Throat: No Drooling Neck: Normal ROM, Trachea Midline, Supple Cardiovascular: Rhythm Regular, No Murmur, No JVD Respiratory: No Decreased Breath Sounds, No Accessory Muscle Use, No Rales, No Rhonchi Gastrointestinal/Abdominal: Soft, No Tenderness, No Distention, No Guarding Back: No CVA Tenderness Extremity: Normal ROM, No Deformity, No Swelling Neurological/Psych: Oriented x3, Normal Speech <Aliyah Burnett - Last Filed: 04/08/17 18:31> ED Course And Treatment - Laboratory Results Result Diagrams: 04/08/17 17:59 04/08/17 17:59 Lab Interpretation: Normal O2 Sat by Pulse Oximetry: 99 (RA) Pulse Ox Interpretation: Normal Progress Note: AT 19:00, pt is medically cleared, psych consult pending. 1:1 continue sec. to suicidal ideation. Case discussed and sign out to . <Aliyah Burnett - Last Filed: 04/08/17 18:31> - Laboratory Results Result Diagrams: 04/08/17 17:59 04/08/17 17:59 ECG: Interpreted By Me, Viewed By Me Pulse Ox Interpretation: Normal - Radiology CXR: Interpreted by Me, Viewed By Me CXR Interpretation: No: Infiltrates, Fracture, Pnemothorax <Venancio Higginbotham - Last Filed: 04/08/17 19:18> Medical Decision Making <Aliyah Burnett - Last Filed: 04/08/17 18:31> <Venancio Higginbotham - Last Filed: 04/08/17 19:18> Medical Decision Making: PLAN: * CXR * EKG * Alcohol Serum * Drug Screen * CBC * CMP * Urinalysis (Aliyah Burnett) Disposition - Disposition Disposition Time: 18:34 <Aliyah Burnett - Last Filed: 04/08/17 18:31> <Venancio Higginbotham - Last Filed: 04/08/17 19:18> - Disposition Condition: STABLE Forms: [facility] (German) - Clinical Impression Clinical Impression: Moderate major depression, single episode, Schizoaffective disorder - 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 - Scribe Statement The provider has reviewed the documentation as recorded by the Scribe <Aliyah Burnett - Last Filed: 04/08/17 18:31> <Venancio Higginbotham - Last Filed: 04/08/17 19:18> - Scribe Statement Christel Guajardo All medical record entries made by the Scribe were at my direction and personally dictated by me. I have reviewed the chart and agree that the record accurately reflects my personal performance of the history, physical exam, medical decision making, and the department course for this patient. I have also personally directed, reviewed, and agree with the discharge instructions and disposition. (Aliyah Burnett) Physician Patient Turnover Patient Signed Over To: Venancio Higginbotham Handoff Comments: Psych eval, 1:1 d/c, re-eval ad dispo <Aliyah Burnett - Last Filed: 04/08/17 18:31>
[2017-04-08 18:07] LABS: BASO # 0.1 K/uL (0.0-0.2); EOS # 0.3 K/uL (0.0-0.7); EOS % 4.2 % (0.0-4.0); HEMATOCRIT 42.3 % (35.0-51.0); LYMPH # 2.3 K/uL (1.0-4.3); LYMPH % 31.6 % (20.0-40.0); MEAN CELL VOLUME 94.9 fL (80.0-94.0); MEAN CORPUSCULAR HEMOGLOBIN 31.9 pg (27.0-31.0); MEAN CORPUSCULAR HGB CONC 33.6 g/dL (33.0-37.0); MEAN PLATELET VOLUME 9.2 fL (7.2-11.7); MONO # 0.6 K/uL (0.0-0.8); MONO % 8.7 % (0.0-10.0); RED CELL DISTRIBUTION WIDTH 12.7 % (11.5-14.5); WHITE BLOOD COUNT 7.4 K/uL (4.8-10.8)
[2017-04-08 18:15] LABS: RBC URINE 1 /hpf (0-3); URINE BILIRUBIN NEGATIVE (NEGATIVE); URINE BLOOD NEGATIVE (NEGATIVE); URINE COLOR Yellow (YELLOW); URINE GLUCOSE (UA) NORMAL (Normal); URINE KETONE NEGATIVE (NEGATIVE); URINE LEUKOCYTE ESTERASE NEG Leu/uL (Negative); URINE PROTEIN NEGATIVE (NEGATIVE); URINE UROBILINOGEN NORMAL mg/dL (0.2-1.0); WBC URINE 1 /hpf (0-5)
[2017-04-08 18:29] LABS: ALB/GLOB RATIO 1.6 (1.0-2.1); ALCOHOL SERUM < 10 mg/dl (0-10); ALKALINE PHOSPHATASE 42 U/L (38-126); ALT/SGPT 34 U/L (21-72); AST/SGOT 21 U/L (17-59); BILIRUBIN,TOTAL 0.4 mg/dL (0.2-1.3); BLOOD UREA NITROGEN 13 mg/dL (9-20); CALCIUM 8.4 mg/dl (8.6-10.4); CARBON DIOXIDE 29 mmol/L (22-30); CHLORIDE 107 mmol/L (98-107); GFR AFRICAN-AMERICAN > 60; GLUCOSE,RANDOM 85 mg/dL (75-110); POTASSIUM 3.8 mmol/L (3.6-5.2); SODIUM 143 mmol/L (132-148); TOTAL PROTEIN 6.4 g/dL (6.3-8.3)
[2017-04-08 20:31] VITALS: O2SAT 97
--- NOTE | 2017-04-08 20:43 | PCM.BM ---
<Ben Whitmore - Last Filed: 04/08/17 20:40> Treatment Plan Problems - Problems identified on initial assessmt Depression Date Initiated: 04/08/17 Time Initiated: 20:41 Assessment reference: NA Status: Active Suicidal Ideation Date Initiated: 04/08/17 Time Initiated: 20:41 Assessment reference: NA Status: Active Substance abuse Date Initiated: 04/08/17 Time Initiated: 20:41 Assessment reference: NA Status: Active Treatment assets and liabiliti Patient Assests: adapts well, cooperative, self-reliant, ADL independent, good support system, negotiates basic needs, cognitively intact Patient Liabilities: live alone (Homeless residential), financial problems (Homeless ), substance abuse (Cocaine, THC), medical problems (Appendectomy) - Milieu Protocol Maintain good personal hygiene: daily Encourage regular showers, daily Remind patient to perform daily oral care, other Assist patient to perform ADL's (Self) Conduct patient checks and document Observation sheet: Q15 minutes (For Safety) Maintain personal safety: every shift Educate patient to report safety concerns to staff, every shift Monitor environment for contraband/sharps Medication safety: Monitor for expected outcome, potential side effects: every shift, Assess barriers to learning: every shift, Assess readiness for medication education: every shift <Nesha Rodriguez - Last Filed: 04/10/17 23:45> - Diagnosis (1) Moderate major depression, single episode Status: Acute Interventions: 04/10/17 23:46 * Assess/adjust medications daily and /or as needed * See patient on an individual basis 7x/week to assess symptoms of depression * Monitor for side effects & effectiveness of medications * (2) Alcohol use disorder, severe, dependence Status: Acute Interventions: 04/10/17 23:47 * Assess 7x/week regarding severity of withdrawal * Educate regarding risks, benefits, side effects and alternatives of medications * Use Motivational Interviewing for abstinence * Use CBT for relapse prevention * Medication management for withdrawal symptoms * Encourage medication assisted treatment * <Do Boo - Last Filed: 04/11/17 10:49> Family Contact Family involvement: Family/SO is involved Family contact: Patient declines to allow family contact at present Discharge/Continuing Care - Education Needs Education Needs: Patient Medication, Patient Coping Skills - Discharge Discharge Criteria: Tolerates medication w/o severe side effects, Reduction of target symptoms Discharge to:: Home - Treatment Team Participation Discussed with Family/SO: No Was Patient/Family/SO present at Treatment Team Meeting: Yes
--- NOTE | 2017-04-09 08:27 | RAD ---
HISTORY: COMPARISON: 01/11/2015. TECHNIQUE: Chest PA and lateral FINDINGS: LINES AND TUBES: None. LUNG AND PLEURA: The lungs are well inflated and clear. HEART AND MEDIASTINUM: The heart is not enlarged. The hilar and mediastinal contours are within normal limits. SKELETAL STRUCTURES: The bony structures are within normal limits for the patient's age. VISUALIZED UPPER ABDOMEN: Normal. OTHER FINDINGS: None. IMPRESSION: No active pulmonary disease.
--- NOTE | 2017-04-09 10:34 | PCM.PSYCH ---
Initial Psychiatric Evaluation - Initial Psychiatric Evaluation Type of Admission: Voluntary Legal Status: Capacity Chief Complaint (in patient's own words): "I feel bad" History of Present Illness and Precipitating Events: This is a 56 year old male who is homeless and has been staying in a custodial in [place]. He is with 3 adult children and is unemployed. He receives Social Security for financial support. Patient has recent admissions to this unit in September and February 2017. He reports that after his last admission, he went to rehab for "a few weeks then didn't like it." He reports issues with staff being "very aggressive." Patient reports "holidays are the worst time for me." He reports increased feelings of depression, hopelessness, and helplessness. He reports he had suicidal ideations recently, planning to "jump [place] [facility]. " He reports auditory hallucinations, delusions of persecution, and feelings of paranoia. He denies any visual hallucinations. He also denies any homicidal ideations. Patient reports cocaine use, stating "it's the only thing that makes me feel better if I don't have my meds." He also reports marijuana use and alcohol use, about 4-5 beers daily. He denies any withdrawal symptoms at this time. He denies any tobacco use or heroin/opioid use. Past medical history: bronchitis, pneumonia Past psychiatric history: anxiety, bipolar disorder, depression, schizophrenia, alcohol withdrawal seizures Family psychiatric history: unknown Family substance abuse: unknown Current Medications: Active Medications Generic Name Dose Route Start Last Admin Trade Name Freq PRN Reason Stop Dose Admin Aspirin 81 mg 04/09/17 10:00 04/09/17 09:34 Ecotrin PO 81 mg DAILY ROSS Administration Clopidogrel Bisulfate 75 mg 04/09/17 10:00 04/09/17 09:34 Plavix PO 75 mg DAILY ROSS Administration Gabapentin 300 mg 04/09/17 10:00 04/09/17 09:34 Neurontin PO 300 mg BID ROSS Administration Hydroxyzine HCl 50 mg 04/08/17 22:31 Atarax PO Q6H PRN Anxiety Ibuprofen 600 mg 04/08/17 22:31 Motrin Tab PO Q6H PRN Pain, moderate (4-7) Trazodone HCl 200 mg 04/08/17 21:18 04/08/17 22:08 Desyrel PO 200 mg HS PRN Administration Insomnia Past Psychiatric History - Past Psychiatric History Previous Treatment History: Inpatient Pertinent Medical Hx (Current Medical&Sleep Prob, Allergies): Allergies Allergy/AdvReac Type Severity Reaction Status Date / Time No Known Allergies Allergy Verified 04/08/17 17:05 Aspirin [Ecotrin] 81 mg PO DAILY 09/09/16 ARIPiprazole [Abilify] 20 mg PO HS #30 tab 09/16/16 Clopidogrel [Plavix] 75 mg PO DAILY #30 tab 02/22/17 Escitalopram [Lexapro] 20 mg PO DAILY #30 tab 02/22/17 Gabapentin [Neurontin] 300 mg PO BID #60 cap 02/22/17 traZODone [Desyrel] 200 mg PO HS PRN 04/08/17 Review of Systems - Review of Systems All systems: reviewed and no additional remarkable complaints except - Neurological Neurological: absent: Convulsions, Lack of Coordination, Tremor - Psychiatric Psychiatric: Abnormal Sleep Pattern, Auditory Hallucinations, Change in Appetite , Depression, Hopelessness, Irritability, Paranoia, Suicidal Ideation Mental Status Examination - Personal Presentation Personal Presentation: Looks stated age - Affect Affect: Constricted, Depressed - Motor Activity Motor Activity: Calm - Reliability in Providing Information Reliability in Providing Information: Poor, due to altered mood - Speech Speech: Organized - Mood Mood: Depressed - Formal Thought Process Formal Thought Process: Hallucinations, Delusions, Paranoia - Hallucinations/Delusions Hallucinations: Auditory Delusions: Persecution - Obsessions/Compulsions Obsessions: No Compulsions: No - Cognitive Functions Orientation: Person, Place, Situation, Time Sensorium: Drowsy Attention/Concentration: Attentive Abstract Thinking: [place] Estimate of Intelligence: Below average Judgement: Imparied, as evidence by: Poor judgement Memory: Recent intact, as evidence by: Ability to recall events of the day, Remote intact, as evidenced by: Abilit to recall sig. 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 diet, exercise, meditation Gabapentin for augmentation As needed medications Attend groups and activities Supportive therapy and psychoeducation NE for abstinence CBT for relapse prevention Encourage MAT Refer to rehab or IOP, and self-help groups 33 min Projected ELOS: 5-6 days Prognosis: good with treatment - Smoking Cessation Smoking Cessation Initiated: Yes
--- NOTE | 2017-04-09 21:48 | CARD ---
APPROVED REPORT EKG Measurement Heart [id number] <Conclusion> Normal sinus rhythm Normal ECG
[2017-04-10] MEDS ORDERED: Influenza Vaccine 60 mcg/0.5 mL SYR (4YR UP) IM ONE (10:00)
[2017-04-10] MEDS ORDERED: Pneumococcal 23-Valent Vaccine IM ONE (10:00)
--- NOTE | 2017-04-10 23:52 | PCM.PYCHPN ---
Psychiatric Progress Note - Psychiatric Progress Note Patient seen today, length of contact: 16 min Patient Chief Complaint: "I am tired" Problems Identified/Issues Discussed: The pt is seen, chart reviewed, case discussed with staff. The pt is compliant with medications and reports no side-effects. Symptoms are improving but needs more time to stabilize. After care discussed, support and psychoeducation given. Interested in rehab He agreed to resume meds Medication Change: Yes (lexapro) Medical Record Reviewed: Yes Mental Status Examination - Cognitive Function Orientation: Person, Place, Situation, Time Memory: Intact Attention: Poor Concentration: Poor Association: WNL Fund of Knowledge: WNL - Mood Mood: Depressed - Affect Affect: Constricted, Depressed - Speech Speech: Appropriate - Formal Thought Process Formal Thought Process: Paranoia - Suicidal Ideation Suicidal Ideation: No - Homicidal Ideation Homicidal Ideation: No Goal/Treatment Plan - Goal/Treatment Plan Need for Continued Stay: Severe depression anxiety, Discharge may exacerbated symptoms, Severe functional impairment Progress Toward Problem(s) and Goals/Treatment Plan: William Attend groups and activities Individual therapy daily Psychoeducation and support daily Encourage compliance with meds and after care Refer to outpatient program Teach healthy lifestyle methods, ie. diet, exercise, meditation Gabapentin for augmentation As needed medications Attend groups and activities Supportive therapy and psychoeducation [place] for abstinence CBT for relapse prevention Encourage MAT Refer to rehab or IOP, and self-help groups
--- NOTE | 2017-04-11 13:15 | PCM.PYCHPN ---
Psychiatric Progress Note - Psychiatric Progress Note Patient seen today, length of contact: 16 min Patient Chief Complaint: "I'm good" Problems Identified/Issues Discussed: This patient was seen, chart reviewed, and case discussed with staff. Patient reports poor sleep and describes mood as "alright." He denies any auditory or visual hallucinations. He denies any suicidal or homicidal ideations. He denies any withdrawal symptoms at this time. He offers no other complaints. Patient is compliant with medications and denies any side effects. Symptoms are improving but need more time to stabilize. After care discussed, considering [facility] in [place], [place]. Support and psychoeducation. Medication Change: No Medical Record Reviewed: Yes Mental Status Examination - Cognitive Function Orientation: Person, Place, Situation, Time Memory: Intact Attention: Poor Concentration: Poor Association: WNL Fund of Knowledge: WNL - Mood Mood: Depressed - Affect Affect: Constricted, Depressed - Speech Speech: Appropriate - Formal Thought Process Formal Thought Process: No Impairment - Suicidal Ideation Suicidal Ideation: No - Homicidal Ideation Homicidal Ideation: No Goal/Treatment Plan - Goal/Treatment Plan Need for Continued Stay: Severe depression anxiety, Discharge may exacerbated symptoms, Severe functional impairment Progress Toward Problem(s) and Goals/Treatment Plan: Mahendraapro and Sarahylify Attend groups and activities Individual therapy daily Psychoeducation and support daily Encourage compliance with meds and after care Refer to outpatient program Teach healthy lifestyle methods, ie. diet, exercise, meditation Gabapentin for augmentation As needed medications Attend groups and activities Supportive therapy and psychoeducation [place] for abstinence CBT for relapse prevention Encourage MAT Refer to rehab or IOP, and self-help groups
--- NOTE | 2017-04-12 14:31 | PCM.PYCHPN ---
Psychiatric Progress Note - Psychiatric Progress Note Patient seen today, length of contact: 15 min Patient Chief Complaint: "I could be better" Problems Identified/Issues Discussed: This patient was seen, chart reviewed, and case discussed with staff. Patient reports poor sleep, stating he had racing thoughts that prevented him from sleeping. He reports improvement in his mood. He also reports good appetite. Staff report limited social interactions but freely leaves his room with encouragement. Patient is compliant with medications and denies any side effects. Symptoms are improving but need more time to stabilize. After care discussed, support and psychoeducation given. Medication Change: No Medical Record Reviewed: Yes Mental Status Examination - Cognitive Function Orientation: Person, Place, Situation, Time Memory: Intact Attention: Poor Concentration: Poor Association: WNL Fund of Knowledge: WNL - Mood Mood: Depressed - Affect Affect: Constricted, Depressed - Speech Speech: Appropriate - Formal Thought Process Formal Thought Process: No Impairment - Suicidal Ideation Suicidal Ideation: No - Homicidal Ideation Homicidal Ideation: No Goal/Treatment Plan - Goal/Treatment Plan Need for Continued Stay: Severe depression anxiety, Discharge may exacerbated symptoms, Severe functional impairment Progress Toward Problem(s) and Goals/Treatment Plan: Mahendramartineolive and Percy Attend groups and activities Individual therapy daily Psychoeducation and support daily Encourage compliance with meds and after care Refer to outpatient program Teach healthy lifestyle methods, ie. diet, exercise, meditation Gabapentin for augmentation As needed medications Attend groups and activities Supportive therapy and psychoeducation [place] for abstinence CBT for relapse prevention Encourage MAT Refer to rehab or IOP, and self-help groups
--- NOTE | 2017-04-13 09:27 | PCM.PYCHPN ---
Psychiatric Progress Note - Psychiatric Progress Note Patient seen today, length of contact: 15 min Patient Chief Complaint: I am still feeling anxious.' Problems Identified/Issues Discussed: Patient seen and evaluated, chart reviewed and discussed with the nurse. Patient still reports irritable mood and reports at times feelings of hopelessness and helplessness. He still reports withdrawal symptoms including nausea, headaches, and sweating. He denies any AVH but remained isolated, and withdrawn. He is taking medication and denies any side effects. He needs more time for stabilization. Supportive therapy and psychoeducation were given. Medication Change: No Medical Record Reviewed: Yes Mental Status Examination - Cognitive Function Orientation: Person, Place, Situation, Time Memory: Intact Attention: Poor Concentration: Poor Association: WNL Fund of Knowledge: WNL - Mood Mood: Depressed - Affect Affect: Constricted, Depressed - Speech Speech: Appropriate - Formal Thought Process Formal Thought Process: No Impairment - Suicidal Ideation Suicidal Ideation: No - Homicidal Ideation Homicidal Ideation: No Goal/Treatment Plan - Goal/Treatment Plan Need for Continued Stay: Severe depression anxiety, Discharge may exacerbated symptoms, Severe functional impairment Progress Toward Problem(s) and Goals/Treatment Plan: William Attend groups and activities Individual therapy daily Psychoeducation and support daily Encourage compliance with meds and after care Refer to outpatient program Teach healthy lifestyle methods, ie. diet, exercise, meditation Gabapentin for augmentation As needed medications Attend groups and activities Supportive therapy and psychoeducation [place] for abstinence CBT for relapse prevention Encourage MAT Refer to rehab or IOP, and self-help groups - Smoking Cessation Smoking Cessation Initiated: No
--- NOTE | 2017-04-14 22:14 | PCM.PYCHPN ---
Psychiatric Progress Note - Psychiatric Progress Note Patient seen today, length of contact: 15 min Patient Chief Complaint: I am much better with the treatment. I am also less irritable. Problems Identified/Issues Discussed: Patient seen, chart reviewed, case discussed with the staff. Issues related to illness and treatment were discussed with the patient and staff. Reported compliant with treatment with no adverse effects. Feeling much better. According to staff patient was less irritable. Aftercare discussed with the patient. Patient was awake, alert and oriented 3. Denied any delusions, auditory or visual hallucinations, suicidal ideations or homicidal ideations at the time of evaluation.. Diagnostic Results: Reviewed DSM 5 Symptoms Update: Improving with treatment Medication Change: No Medical Record Reviewed: Yes Mental Status Examination - Cognitive Function Orientation: Person, Place, Situation, Time Memory: Intact Attention: WNL Concentration: WNL Association: WNL Fund of Knowledge: [facility] Decription of patient's judgement and insights: Fair - Mood Mood: Neutral - Affect Affect: Other (Appropriate) - Speech Speech: Appropriate - Formal Thought Process Formal Thought Process: No Impairment Psychotic Thoughts and Behaviors: None - Suicidal Ideation Suicidal Ideation: No - Homicidal Ideation Homicidal Ideation: No Goal/Treatment Plan - Goal/Treatment Plan Need for Continued Stay: Remain at risks for inpatient hospitalization, Discharge may exacerbated symptoms, Severe functional impairment Progress Toward Problem(s) and Goals/Treatment Plan: Patient education Supportive therapy Continue treatment as before Patient will go to [facility] for follow-up care after discharge from the hospital. Estimated Date of D/C: 04/16/17 - Smoking Cessation Smoking Cessation Initiated: No
--- NOTE | 2017-04-15 10:29 | PCM.BM ---
<Airam Booy - Last Filed: 04/15/17 10:29> Treatment Plan Problems - Problems identified on initial assessmt Depression Date Initiated: 04/08/17 Time Initiated: :41 Assessment reference: NA Status: Active Suicidal Ideation Date Initiated: 04/08/17 Time Initiated: 20:41 Assessment reference: NA Status: Active Substance abuse Date Initiated: 04/08/17 Time Initiated: :41 Assessment reference: NA Status: Active Treatment assets and liabiliti Patient Assests: adapts well, cooperative, self-reliant, ADL independent, good support system, negotiates basic needs, cognitively intact Patient Liabilities: live alone (Homeless care home), financial problems (Homeless ), substance abuse (Cocaine, THC), medical problems (Appendectomy) - Milieu Protocol Maintain good personal hygiene: daily Encourage regular showers, daily Remind patient to perform daily oral care, other Assist patient to perform ADL's (Self) Conduct patient checks and document Observation sheet: Q15 minutes (For Safety) Maintain personal safety: every shift Educate patient to report safety concerns to staff, every shift Monitor environment for contraband/sharps Medication safety: Monitor for expected outcome, potential side effects: every shift, Assess barriers to learning: every shift, Assess readiness for medication education: every shift Milieu Narrative: Patient education Supportive therapy Continue treatment as before Patient will go to [facility] for follow-up care after discharge from the hospital. Family Contact Family involvement: Family/SO is involved Family contact: Patient declines to allow family contact at present Discharge/Continuing Care - Education Needs Education Needs: Patient Medication, Patient Coping Skills - Discharge Discharge Criteria: Tolerates medication w/o severe side effects, Reduction of target symptoms Discharge to:: Home - Treatment Team Participation Patient/Family/SO Statement: Patient education Supportive therapy Continue treatment as before Patient will go to [facility] for follow-up care after discharge from the hospital. Discussed with Family/SO: No Was Patient/Family/SO present at Treatment Team Meeting: Yes Treatment Plan Review - Problem Depression Time Initiated: : Suicidal Ideation Time Initiated: :41 Substance abuse Time Initiated: :41 - Discharge / Continuing Care Discharge to:: Substance Abuse Rehab Behavioral Health Services: Residential treatment Health Needs: Medications/Rx, Alcohol/Drug treatment <Nesha Rodriguez - Last Filed: 04/15/17 10:42> - Diagnosis (1) Moderate major depression, single episode Status: Acute Interventions: 04/15/17 10:41 * Assess/adjust medications daily and /or as needed * See patient on an individual basis 7x/week to assess symptoms of depression * Monitor for side effects & effectiveness of medications * (2) Alcohol use disorder, severe, dependence Status: Acute Interventions: 04/15/17 10:42 * Assess 7x/week regarding severity of withdrawal * Educate regarding risks, benefits, side effects and alternatives of medications * Use Motivational Interviewing for abstinence * Use CBT for relapse prevention * Medication management for withdrawal symptoms * Encourage medication assisted treatment *
--- NOTE | 2017-04-15 14:39 | PCM.PYCHPN ---
Psychiatric Progress Note - Psychiatric Progress Note Patient seen today, length of contact: 15 min Patient Chief Complaint: "I'm okay" Problems Identified/Issues Discussed: This patient was seen, chart reviewed, and case discussed with staff. Patient reports panic attack and anxiety overnight leading to poor sleep. He states his mood is "alright." Staff reports continued isolation and limited social interaction. Patient is compliant with medications and denies any side effects. Symptoms are improving but need more time to stabilize. After care discussed, wants to go to [facility] senior living in [place] and outpatient care in [place], considering [facility]. Support and psychoedcuation given. Medication Change: No Medical Record Reviewed: Yes Mental Status Examination - Cognitive Function Orientation: Person, Place, Situation, Time Memory: Intact Attention: WNL Concentration: WNL Association: WNL Fund of Knowledge: WNL - Mood Mood: Depressed, Anxious - Affect Affect: Other (Appropriate) - Speech Speech: Appropriate - Formal Thought Process Formal Thought Process: No Impairment - Suicidal Ideation Suicidal Ideation: No - Homicidal Ideation Homicidal Ideation: No Goal/Treatment Plan - Goal/Treatment Plan Need for Continued Stay: Remain at risks for inpatient hospitalization, Discharge may exacerbated symptoms, Severe functional impairment Progress Toward Problem(s) and Goals/Treatment Plan: Mahendraapro and Amayay Attend groups and activities Individual therapy daily Psychoeducation and support daily Encourage compliance with meds and after care Refer to outpatient program Teach healthy lifestyle methods, ie. diet, exercise, meditation Gabapentin for augmentation As needed medications Attend groups and activities Supportive therapy and psychoeducation [place] for abstinence CBT for relapse prevention Encourage MAT Refer to rehab or IOP, and self-help groups Estimated Date of D/C: 04/16/17
[2017-04-16 07:39] VITALS: RESP 20; TEMP 97.8
--- NOTE | 2017-04-16 14:50 | PCM.PYCHPN ---
Psychiatric Progress Note - Psychiatric Progress Note Patient seen today, length of contact: 17 min Patient Chief Complaint: "I'm okay" Problems Identified/Issues Discussed: This patient was seen, chart reviewed, and case discussed with staff. Patient reports good sleep and improved mood. He reports generalized body aches. He offers no other complaints and believes he is improving. Staff report that he is more social than previous days. He is still isolated though and has a relapse risk. He will be dc'ed tomorrow as otherwise he will likely relapse immediately Patient is compliant with medications and denies any side effects. Symptoms are improving but need more time to stabilize. After care discussed, support and psychoeducation given. Medication Change: No Medical Record Reviewed: Yes Mental Status Examination - Cognitive Function Orientation: Person, Place, Situation, Time Memory: Intact Attention: WNL Concentration: WNL Association: WNL Fund of Knowledge: WNL - Mood Mood: Depressed, Anxious - Affect Affect: Constricted - Speech Speech: Appropriate - Formal Thought Process Formal Thought Process: No Impairment - Suicidal Ideation Suicidal Ideation: No - Homicidal Ideation Homicidal Ideation: No Goal/Treatment Plan - Goal/Treatment Plan Need for Continued Stay: Remain at risks for inpatient hospitalization, Discharge may exacerbated symptoms, Severe functional impairment Progress Toward Problem(s) and Goals/Treatment Plan: Mahendraapro and Sarahylify Attend groups and activities Individual therapy daily Psychoeducation and support daily Encourage compliance with meds and after care Refer to outpatient program Teach healthy lifestyle methods, ie. diet, exercise, meditation Gabapentin for augmentation As needed medications Attend groups and activities Supportive therapy and psychoeducation [place] for abstinence CBT for relapse prevention Encourage MAT Refer to rehab or IOP, and self-help groups Estimated Date of D/C: 04/16/17
[2017-04-16 15:50] VITALS: BP 110/75; PULSE 95
--- NOTE | 2017-04-17 10:55 | PCM.PYCHDC ---
Mental Status Examination - Mental Status Examination Orientation: Person, Place, Situation, Time Memory: Intact Mood: Neutral Affect: Constricted Speech: Soft Attention: WNL Concentration: WNL Association: WNL Fund of Knowledge: WNL Formal Thought Process: No Impairment Description of patient's judgement and insight: good, fair Psychotic Thoughts and Behaviors: denies any AVH Suicidal Ideation: No Current Homicidal Ideation?: No Discharge Summary - Discharge Note Reason for Hospitalization: This is a 56 year old male who is homeless and has been staying in a long-term in [place]. He is with 3 adult children and is unemployed. He receives Social Security for financial support. Patient has recent admissions to this unit in September and February 2017. He reports that after his last admission, he went to rehab for "a few weeks then didn't like it." He reports issues with staff being "very aggressive." Patient reports "holidays are the worst time for me." He reports increased feelings of depression, hopelessness, and helplessness. He reports he had suicidal ideations recently, planning to "jump [place] the [facility]. " He reports auditory hallucinations, delusions of persecution, and feelings of paranoia. He denies any visual hallucinations. He also denies any homicidal ideations. Patient reports cocaine use, stating "it's the only thing that makes me feel better if I don't have my meds." He also reports marijuana use and alcohol use, about 4-5 beers daily. He denies any withdrawal symptoms at this time. He denies any tobacco use or heroin/opioid use. Consultations:: List each consultation separately and include: 1. Reason for request. 2. Findings. 3. Follow-up Summary of Hospital Course include:: 1. Description of specific treatment plan utilized for patients during their course of treatmen. 2. Summarize the time- course for resolution of acute symptoms and/or regressed behaviors. 3. Describe issues identified and worked on during hospitalization. 4. Describe medication utilized. 5. Describe medical problems identified and treated. 6. Reassessment of suicide risk Summary of Hospital Course: During the course of his stay, patient (pt) started progressively improving and he no longer remained irritable, depressed, and suicidal. His mood and anxiety symptoms were improved and he started attending groups and meetings and started socializing. Patient denied any feelings of hopelessness, helplessness, and worthlessness, denied any problem with the sleep or appetite, denied suicidal ideation or homicidal ideation. Pt denied any auditory or visual hallucinations. Some changes were made in his current medications and patient was discharged on following medications. He tolerated these medications very well and denied any side effects. Pt is to stay at [facility] long-term. His intake appt at [facility] oupatient is for 05/01/17 at 9:30 a.m. He also has appt at [facility] for substance abuse treatment on 05/27/17 at 3:30 p.m. 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 Pt was educated and counseled about the risks of drinking and abusing drugs. Pt was educated and counseled to go to the ER or call 911 if pt develop suicidal ideation or homicidal ideation, worsening of symptoms or severe side effects of the meds. Prescriptions/Medication Reconciliation: ARIPiprazole [Abilify] 10 mg PO QPM #30 tab Aspirin [Ecotrin] 81 mg PO DAILY #30 tabec Clopidogrel [Plavix] 75 mg PO DAILY #30 tab Escitalopram [Lexapro] 10 mg PO DAILY #30 tab Gabapentin [Neurontin] 300 mg PO BID #60 cap traZODone [Desyrel] 100 mg PO HS PRN #60 tab PRN Reason: Insomnia - Smoking Cessation Smoking Cessation Medication prescribed: No - Antipsychotic Medications Pt discharged on 2 or more routine antipsychotic medications: No
== END 2017-04-17 13:09 | disposition home or self-care (01) | DRG 430 ==
LOC: C.ER 16:55 → C.5E 20:10
PROVIDERS: ADMIT Psychiatry & Neurology Psychiatry; ATTEND Psychiatry & Neurology Psychiatry
PROC: GZHZZZZ Group Psychotherapy (ICD-10-PCS; principal; 2017-04-08)
PROC: GZ58ZZZ Individual Psychotherapy, Cognitive-Behavioral (ICD-10-PCS; 2017-04-08)
PROC: GZ56ZZZ Individual Psychotherapy, Supportive (ICD-10-PCS; 2017-04-08)
PROC: HZ83ZZZ Medication Management for Substance Abuse Treatment, Antabuse (ICD-10-PCS; 2017-04-08)
DX: F32.1 Major depressive disorder, single episode, moderate (principal); F14.20 Cocaine dependence, uncomplicated; R45.851 Suicidal ideations; F10.230 Alcohol dependence with withdrawal, uncomplicated; F22 Delusional disorders; F12.20 Cannabis dependence, uncomplicated; F41.0 Panic disorder [episodic paroxysmal anxiety]; Z59.0 Homelessness

== ENCOUNTER 2017-06-24 22:07 | Inpatient (IN) | payer MEDICAID ==
[2017-06-24 23:40] LABS: BASO # 0.1 K/uL (0.0-0.2); BASO % 1.2 % (0.0-2.0); EOS # 0.3 K/uL (0.0-0.7); EOS % 2.8 % (0.0-4.0); HEMOGLOBIN 14.9 g/dL (12.0-18.0); LYMPH # 2.5 K/uL (1.0-4.3); LYMPH % 27.1 % (20.0-40.0); MEAN CELL VOLUME 95.2 fL (80.0-94.0); MEAN CORPUSCULAR HEMOGLOBIN 32.2 pg (27.0-31.0); MEAN CORPUSCULAR HGB CONC 33.8 g/dL (33.0-37.0); MONO # 0.5 K/uL (0.0-0.8); MONO % 5.7 % (0.0-10.0); NEUT # 5.8 K/uL (1.8-7.0); NEUT % 63.2 % (50.0-75.0); RBC 4.63 Mil/uL (4.40-5.90); RED CELL DISTRIBUTION WIDTH 12.7 % (11.5-14.5); WHITE BLOOD COUNT 9.1 K/uL (4.8-10.8)
[2017-06-24 23:44] LABS: URINE BILIRUBIN NEGATIVE (NEGATIVE); URINE BLOOD NEGATIVE (NEGATIVE); URINE CLARITY Clear (Clear); URINE COLOR Straw (YELLOW); URINE GLUCOSE (UA) NORMAL (Normal); URINE LEUKOCYTE ESTERASE NEG Leu/uL (Negative); URINE NITRATE NEGATIVE (NEGATIVE); URINE PROTEIN NEGATIVE (NEGATIVE); URINE UROBILINOGEN NORMAL mg/dL (0.2-1.0)
[2017-06-24 23:58] LABS: ALB/GLOB RATIO 1.3 (1.0-2.1); ALBUMIN 4.2 g/dL (3.5-5.0); ALT/SGPT 23 U/L (21-72); AST/SGOT 25 U/L (17-59); BLOOD UREA NITROGEN 13 mg/dL (9-20); CALCIUM 9.2 mg/dl (8.6-10.4); GFR AFRICAN-AMERICAN > 60; GFR NON-AFRICAN AMERICAN > 60
[2017-06-25 00:07] LABS: ACETAMINOPHEN < 10.0 ug/mL (10.0-30.0); SALICYLATE < 1.0 mg/dL 1
[2017-06-25 00:10] LABS: BARBITURATES, UR NEGATIVE (NEGATIVE); BENZODIAZEPINES, UR NEGATIVE (NEGATIVE); OPIATES, UR NEGATIVE (NEGATIVE); PHENCYCLIDINE, UR NEGATIVE (NEGATIVE)
--- NOTE | 2017-06-25 00:34 | C.PDOC ---
History Of Present Illness 57 year old male presents to the ED for evaluation of suicidal ideation. Patient has extensive substance abuse and psychiatric history. No other acute complaints at this time. Time Seen by Provider: 06/24/17 23:11 Chief Complaint (Nursing): Psychiatric Evaluation History Per: Patient History/Exam Limitations: no limitations Onset/Duration Of Symptoms: Days Current Symptoms Are (Timing): Still Present Associated Symptoms: Suicidal Thoughts Past Medical History Reviewed: Historical Data, Nursing Documentation, Vital Signs Vital Signs: Last Vital Signs Temp 97.5 F L 06/28/17 06:32 Pulse 73 06/28/17 06:32 Resp 20 06/28/17 06:32 BP 105/71 06/28/17 06:32 Pulse Ox 98 06/26/17 06:03 - Medical History PMH: Anxiety, Bipolar Disorder, Bronchitis, Depression, Gastrointestinal Ulcer, Pneumonia, Schizophrenia, Seizures (ETOH related) Denies: Diabetes, Hepatitis, HIV, HTN, Chronic Kidney Disease, Sexually Transmitted Disease Surgical History: Appendectomy (1999) - [facility] Procedures DETOXIFICATION SERVICES FOR SUBSTANCE ABUSE TREATMENT (05/21/17) GROUP FAMILY AND CONSUMER EDUCATION TEACHER FOR SUBSTANCE ABUSE TREATMENT, PSYCHOEDUCATION (02/13/17) GROUP FAMILY AND CONSUMER EDUCATION TEACHER FOR SUBSTANCE ABUSE, COGNITIVE BEHAVIORAL (02/13/17) GROUP PSYCHOTHERAPY (04/08/17) INDIV PSYCHOTHERAPY FOR SUBSTANCE ABUSE TREATMENT, SUPPORT (02/13/17) INDIV PSYCHOTHERAPY FOR SUBSTANCE ABUSE, COGNITIV BEHAVIORAL (02/13/17) INDIV PSYCHOTHERAPY FOR SUBSTANCE ABUSE, PSYCHOEDUCATION (02/13/17) INDIVIDUAL PSYCHOTHERAPY, COGNITIVE-BEHAVIORAL (04/08/17) INDIVIDUAL PSYCHOTHERAPY, SUPPORTIVE (05/21/17) MEDS MGMT FOR SUBSTANCE ABUSE TREATMENT, ANTABUSE (04/08/17) PSYCHIAT DRUG THERAP NEC (12/05/14) VACCINATION NEC (12/16/14) Family History: States: Unknown Family Hx - Social History Hx Tobacco Use: No Hx Alcohol Use: Yes Hx Substance Use: Yes - Immunization History Hx Tetanus Toxoid Vaccination: No Hx Influenza Vaccination: No Hx Pneumococcal Vaccination: No Review Of Systems Except As Marked, All Systems Reviewed And Found Negative. Constitutional: Negative for: Fever, Chills ENT: Negative for: Ear Pain, Throat Pain Cardiovascular: Negative for: Chest Pain Respiratory: Negative for: Shortness of Breath Gastrointestinal: Negative for: Nausea, Vomiting, Abdominal Pain, Diarrhea Skin: Negative for: Rash Neurological: Negative for: Headache Psych: Positive for: Suicidal ideation Physical Exam - Physical Exam Appears: Well, No Acute Distress Skin: Normal Color, Warm, Dry Head: Atraumatic, Normacephalic Eye(s): bilateral: Normal Inspection, PERRL, EOMI Oral Mucosa: Moist Tongue: Normal Appearing Lips: Normal Appearing Throat: Normal Neck: Normal, Normal ROM, Supple Cardiovascular: Rhythm Regular Respiratory: Normal Breath Sounds Gastrointestinal/Abdominal: Soft, No Tenderness Back: Normal Inspection Extremity: Normal ROM, No Deformity Neurological/Psych: Oriented x3, Normal Speech, Other (Flat affect) ED Course And Treatment - Laboratory Results Result Diagrams: 06/24/17 23:31 06/24/17 23:31 O2 Sat by Pulse Oximetry: 95 Disposition Doctor Will See Patient In The: Hospital Counseled Patient/Family Regarding: Studies Performed, Diagnosis - Disposition Disposition: HOSPITALIZED Disposition Time: 06:00 Condition: GOOD - Clinical Impression Clinical Impression: Depression - Scribe Statement The provider has reviewed the documentation as recorded by the Scribe The provider has reviewed the documentation as recorded by the Scribe (Brigido Bojorquez) Provider Attestation: All medical record entries made by the Scribe were at my direction and personally dictated by me. I have reviewed the chart and agree that the record accurately reflects my personal performance of the history, physical exam, medical decision making, and the department course for this patient. I have also personally directed, reviewed, and agree with the discharge instructions and disposition.
--- NOTE | 2017-06-25 00:41 | C.PDOC ---
Time Seen by Provider: 06/24/17 23:11 Chief Complaint (Nursing): Psychiatric Evaluation Past Medical History Vital Signs: Last Vital Signs Temp 98.1 F 06/24/17 22:59 Pulse 70 06/24/17 22:59 Resp 20 06/24/17 22:59 BP 100/60 06/24/17 22:59 Pulse Ox 95 06/24/17 22:59 - Medical History PMH: Anxiety, Bipolar Disorder, Bronchitis, Depression, Gastrointestinal Ulcer, Pneumonia, Schizophrenia, Seizures (ETOH related) Denies: Diabetes, Hepatitis, HIV, HTN, Chronic Kidney Disease, Sexually Transmitted Disease Surgical History: Appendectomy (1999) - [facility] Procedures DETOXIFICATION SERVICES FOR SUBSTANCE ABUSE TREATMENT (05/21/17) GROUP DRYWALL FINISHING FOREMAN FOR SUBSTANCE ABUSE TREATMENT, PSYCHOEDUCATION (02/13/17) GROUP DRYWALL FINISHING FOREMAN FOR SUBSTANCE ABUSE, COGNITIVE BEHAVIORAL (02/13/17) GROUP PSYCHOTHERAPY (04/08/17) INDIV PSYCHOTHERAPY FOR SUBSTANCE ABUSE TREATMENT, SUPPORT (02/13/17) INDIV PSYCHOTHERAPY FOR SUBSTANCE ABUSE, COGNITIV BEHAVIORAL (02/13/17) INDIV PSYCHOTHERAPY FOR SUBSTANCE ABUSE, PSYCHOEDUCATION (02/13/17) INDIVIDUAL PSYCHOTHERAPY, COGNITIVE-BEHAVIORAL (04/08/17) INDIVIDUAL PSYCHOTHERAPY, SUPPORTIVE (05/21/17) MEDS MGMT FOR SUBSTANCE ABUSE TREATMENT, ANTABUSE (04/08/17) PSYCHIAT DRUG THERAP NEC (12/05/14) VACCINATION NEC (12/16/14) Family History: States: Unknown Family Hx - Social History Hx Tobacco Use: No Hx Alcohol Use: Yes Hx Substance Use: Yes - Immunization History Hx Tetanus Toxoid Vaccination: No Hx Influenza Vaccination: No Hx Pneumococcal Vaccination: No ED Course And Treatment - Laboratory Results Lab Interpretation: Abnormal (etoh 119 H) O2 Sat by Pulse Oximetry: 95 Reevaluation Time: 00:41 Reassessment Condition: Improved Medical Decision Making Medical Decision Making: alcohol abuse, depression, suicidal ideation 0100: pending Crisis eval and dispo, signed over to overnight MD Disposition - Disposition Disposition Time: 01:00 Condition: GOOD - Clinical Impression Clinical Impression: Depression Physician Patient Turnover Patient Signed Over To: Alissa Chakraborty Handoff Comments: dispo per Crisis Eval
--- NOTE | 2017-06-25 03:39 | PCM.BM ---
<JaguarKrystal looney - Last Filed: 06/25/17 03:37> Treatment Plan Problems - Problems identified on initial assessmt Sucidal Ideation Date Initiated: 06/25/17 Time Initiated: 02:10 Assessment reference: NA Status: Active Substance Abuse Date Initiated: 06/25/17 Time Initiated: 02:10 Assessment reference: NA Status: Active Depression Date Initiated: 06/25/17 Time Initiated: 02:10 Assessment reference: NA Status: Active Treatment assets and liabiliti Patient Assests: adapts well, good support system, negotiates basic needs, cognitively intact, cooperative, self-reliant, ADL independent Patient Liabilities: financial problems, poor support system, substance abuse - Milieu Protocol Maintain good personal hygiene: daily Encourage regular showers, daily Remind patient to perform daily oral care, daily Assist patient to perform ADL's Conduct patient checks and document Observation sheet: Q15 minutes Maintain personal safety: every shift Educate patient to report safety concerns to staff, every shift Monitor environment for contraband/sharps Medication safety: Monitor for expected outcome, potential side effects: every shift, Assess barriers to learning: every shift, Assess readiness for medication education: every shift <Nesha Rodriguez - Last Filed: 06/25/17 23:16> - Diagnosis (1) Depression Status: Acute Interventions: 06/25/17 23:16 * Assess/adjust medications daily and /or as needed * See patient on an individual basis 7x/week to assess symptoms of depression * Monitor for side effects & effectiveness of medications * (2) Alcohol use disorder, severe, dependence Status: Acute Interventions: 06/25/17 23:17 * Assess 7x/week regarding severity of withdrawal * Educate regarding risks, benefits, side effects and alternatives of medications * Use Motivational Interviewing for abstinence * Use CBT for relapse prevention * Medication management for withdrawal symptoms * Encourage medication assisted treatment * <Do Boo - Last Filed: 06/26/17 10:40> Family Contact Family involvement: Family/SO is involved Family contact: Patient declines to allow family contact at present - Goals for Treatment Patient goals for treatment: "I need to sleep." Discharge/Continuing Care - Education Needs Education Needs: Patient Medication, Patient Coping Skills, Patient Placement options, Patient Community resources - Discharge Discharge Criteria: Tolerates medication w/o severe side effects, Free of Suicidal thoughts, No longer exhibiting s/s of withdrawal, Reduction of target symptoms Discharge to:: Home - Treatment Team Participation Discussed with Family/SO: No Was Patient/Family/SO present at Treatment Team Meeting: Yes
--- NOTE | 2017-06-25 15:33 | PCM.PSYCH ---
Initial Psychiatric Evaluation - Initial Psychiatric Evaluation Type of Admission: Voluntary Legal Status: Capacity Chief Complaint (in patient's own words): " My panic attacks scared me" History of Present Illness and Precipitating Events: He is seen, chart reviewed, case disc ussed. He is well-known to us. Patient is a 57 year old male who presented to the ED for panic attacks, SI, depression and anxiety. He lives in [place] with a friend, is , has one 29 yo kid. He is unemployed, used to work in the [employer] industry. Patient states he has had panic attacks for 20 years, but they have become more frequent, experiencing multiple attacks per day, preventing him from sleeping for the last 3 days. He normally has not trouble sleeping. He drinks 4 cans of 24 oz beer and 0.5 pints of vodka per day. He snorts 1 g of cocaine 2-3 times per day. Smoke marijuana when available but does not pursue it. Denies painkillers, heroin. He was discharged from [facility] on 05/27/17, and 04/17 secondary to similar symptoms of suicidal idx, feelings of depression/ hopelessness, and polysubstance dependence. On both occasions, he was discharged from [facility] with appointments to [facility] and [facility]. Again, however, he did not follow through with aftercare plans, stating he felt "alright" at the time, and discontinued his med regime. He again relapsed on EtOH, cocaine, feelings of paranoia that people are watching him and talking about him, and auditory hallucinations. Followup was addressed with the patient who said he understands he will need to complete aftercare to maintain progress made here. He remains depressed, hopeless and helpless. He remained isolated and withdrawn in the unit. Detox Hx: 5 times. Rehab Hx: denies Medical Hx: cerebral infarct. Hep C, HTN, CAD Psych Hx: hospitalized 10+ times. Dr. Neal psychiatrist at [facility]. Fam Hx: denies. Current Medications: Active Medications Generic Name Dose Route Start Last Admin Trade Name Freq PRN Reason Stop Dose Admin Aripiprazole 5 mg 06/25/17 18:00 Abilify PO QPM ROSS Escitalopram Oxalate 10 mg 06/25/17 13:00 Lexapro PO DAILY ROSS Gabapentin 300 mg 06/25/17 18:00 Neurontin PO BID ROSS Hydroxyzine HCl 50 mg 06/25/17 12:53 Atarax PO Q6H PRN Anxiety Trazodone HCl 100 mg 06/25/17 12:53 Desyrel PO HS PRN Insomnia Past Psychiatric History - Past Psychiatric History Pertinent Medical Hx (Current Medical&Sleep Prob, Allergies): Allergies Allergy/AdvReac Type Severity Reaction Status Date / Time No Known Allergies Allergy Verified 04/08/17 17:05 Gabapentin [Neurontin] 300 mg PO BID #60 cap 02/22/17 Aspirin [Ecotrin] 81 mg PO DAILY #30 tabec 04/17/17 Clopidogrel [Plavix] 75 mg PO DAILY #30 tab 04/17/17 Aripiprazole [Abilify] 20 mg PO BID 05/21/17 Paroxetine HCl [Paxil] 20 mg PO BID 05/21/17 ARIPiprazole [Abilify] 10 mg PO HS #30 tab 05/27/17 Escitalopram [Lexapro] 20 mg PO DAILY #30 tab 05/27/17 traZODone [Desyrel] 100 mg PO HS PRN #30 tab 05/27/17 Review of Systems - Neurological Neurological: UNREMARKABLE - Psychiatric Psychiatric: Auditory Hallucinations Mental Status Examination - Personal Presentation Personal Presentation: Looks stated age - Affect Affect: Constricted, Depressed - Motor Activity Motor Activity: Calm - Reliability in Providing Information Reliability in Providing Information: Good - Speech Speech: Organized - Mood Mood: Depressed, Anxious - Formal Thought Process Formal Thought Process: No Impairment - Hallucinations/Delusions Hallucinations: Auditory - Cognitive Functions Orientation: Person, Place, Situation, Time Sensorium: Lethargic Judgement: Intact, as evidence by: Insight regarding need for hospitalization Memory: Recent intact, as evidence by: Ability to recall events of the day, Remote intact, as evidenced by: Abilit to recall sig. life events - Risk Risk: Withdrawal DSM 5 DX - DSM 5 DSM 5 Diagnosis: Bipolar disorder mixed severe with psychotic features Alcohol use disorder severe Alcohol withdrawal Cocaine use disorder severe - Recommended/Plan of Treatment Treatment Recommendations and Plan of Treatment: Bipolar disorder mixed severe with psychotic features CBT Psychoeducation Supportive therapy, group therapy, individual therapy Lexapro 10 mg PO Daily Abilify 5 m g PO QHS Neurontin 300 mg by mouth 2 times a day Trazodone 100 mg by mouth daily at bedtime Alcohol use disorder severe CBT Psychoeducation Supportive therapy, individual therapy Use [place] for abstinence Alcohol withdrawal CBT Psychoeducation Supportive therapy, individual therapy Cocaine use disorder severe Monitor signs and symptoms Use [place] for abstinence Projected ELOS: 4-5 days Discharge Plan and Discharge Criteria: Will discuss inpatient versus outpatient rehab with patient.
--- NOTE | 2017-06-26 11:18 | PCM.PYCHPN ---
Psychiatric Progress Note - Psychiatric Progress Note Patient seen today, length of contact: 16 min Patient Chief Complaint: "I am still anxious" Problems Identified/Issues Discussed: The pt is seen, chart reviewed, case discussed with staff. Support given, CBT and [facility] used briefly No new symptoms reported, improving slowly and needs more time No SEs from medications, risks discussed. After care discussed - he is strangely refusing higher level of care, ie rehab, despite his many relapses and recurrent admissions. How to avoid that discussed. Medication Change: Yes (increase meds) Medical Record Reviewed: Yes Mental Status Examination - Cognitive Function Orientation: Person, Place, Situation, Time Memory: Intact Attention: WNL Concentration: WNL Association: WNL Fund of Knowledge: WNL - Mood Mood: Depressed, Anxious - Affect Affect: Constricted, Depressed - Formal Thought Process Formal Thought Process: No Impairment - Suicidal Ideation Suicidal Ideation: No - Homicidal Ideation Homicidal Ideation: No Goal/Treatment Plan - Goal/Treatment Plan Need for Continued Stay: Discharge may exacerbated symptoms, Severe functional impairment Progress Toward Problem(s) and Goals/Treatment Plan: CBT Psychoeducation Supportive therapy, group therapy, individual therapy Lexapro 20 mg PO Daily now Abilify 10 m g PO QPM now Neurontin 300 mg by mouth 2 times a day Trazodone 100 mg by mouth daily at bedtime Use [place] for abstinence
--- NOTE | 2017-06-27 11:21 | PCM.PYCHPN ---
Psychiatric Progress Note - Psychiatric Progress Note Patient seen today, length of contact: 18 min Patient Chief Complaint: "I feel better." Problems Identified/Issues Discussed: The pt is seen, chart reviewed, case discussed with staff. The pt is compliant with medications and reports no side-effects. Symptoms are improving but needs more time to stabilize. naltrexone added for alcohol/cocaine use - risks discussed. Patient appears improved. He says he slept well and has not had a panic attack in 2 days. He stated understanding of his need to get outpatient care, agreed to work with SW to coordinate care at [facility] (last there in 2014), or another program in [place]. Denies SI/HI. Medication Change: Yes (naltrexone) Medical Record Reviewed: Yes Mental Status Examination - Cognitive Function Orientation: Person, Place, Situation, Time Memory: Intact Attention: WNL Concentration: WNL Association: WNL Fund of Knowledge: WNL - Mood Mood: Depressed, Anxious - Affect Affect: Constricted, Depressed - Speech Speech: Appropriate - Formal Thought Process Formal Thought Process: No Impairment - Suicidal Ideation Suicidal Ideation: No - Homicidal Ideation Homicidal Ideation: No Goal/Treatment Plan - Goal/Treatment Plan Need for Continued Stay: Discharge may exacerbated symptoms, Severe functional impairment Progress Toward Problem(s) and Goals/Treatment Plan: CBT Psychoeducation Supportive therapy, group therapy, individual therapy Lexapro 20 mg PO Daily naltrexone 50 mg daily Abilify 10 m g PO QPM Neurontin 300 mg by mouth 2 times a day Trazodone 100 mg by mouth daily at bedtime Use [place] for abstinence Estimated Date of D/C: 06/28/17
[2017-06-28 06:33] VITALS: BP 105/71; PULSE 73; RESP 20; TEMP 97.5
--- NOTE | 2017-06-28 09:47 | PCM.PYCHDC ---
Mental Status Examination - Mental Status Examination Orientation: Person Discharge Summary - Discharge Note Consultations:: List each consultation separately and include: 1. Reason for request. 2. Findings. 3. Follow-up Summary of Hospital Course include:: 1. Description of specific treatment plan utilized for patients during their course of treatmen. 2. Summarize the time- course for resolution of acute symptoms and/or regressed behaviors. 3. Describe issues identified and worked on during hospitalization. 4. Describe medication utilized. 5. Describe medical problems identified and treated. 6. Reassessment of suicide risk Summary of Hospital Course: He is seen, chart reviewed, case disc ussed. He is well-known to us. Patient is a 57 year old male who presented to the ED for panic attacks, SI, depression and anxiety. He lives in [place] with a friend, is , has one 29 yo kid. He is unemployed, used to work in the [employer] industry. Patient states he has had panic attacks for 20 years, but they have become more frequent, experiencing multiple attacks per day, preventing him from sleeping for the last 3 days. He normally has not trouble sleeping. He drinks 4 cans of 24 oz beer and 0.5 pints of vodka per day. He snorts 1 g of cocaine 2-3 times per day. Smoke marijuana when available but does not pursue it. Denies painkillers, heroin. He was discharged from [facility] on 05/27/17, and 04/17 secondary to similar symptoms of suicidal idx, feelings of depression/ hopelessness, and polysubstance dependence. On both occasions, he was discharged from [facility] with appointments to [facility] and [facility]. Again, however, he did not follow through with aftercare plans, stating he felt "alright" at the time, and discontinued his med regime. He again relapsed on EtOH, cocaine, feelings of paranoia that people are watching him and talking about him, and auditory hallucinations. Followup was addressed with the patient who said he understands he will need to complete aftercare to maintain progress made here. He remains depressed, hopeless and helpless. He remained isolated and withdrawn in the unit. Detox Hx: 5 times. Rehab Hx: denies Medical Hx: cerebral infarct. Hep C, HTN, CAD Psych Hx: hospitalized 10+ times. Dr. Neal psychiatrist at [facility]. Fam Hx: denies. - Diagnosis (1) Depression Current Visit: Yes Status: Acute (2) Alcohol use disorder, severe, dependence Current Visit: No Status: Acute - Final Diagnosis (DSM 5) Condition upon Discharge: GOOD Disposition: HOME/ ROUTINE Follow-up Treatment Plan: CBT Psychoeducation Supportive therapy, group therapy, individual therapy Lexapro 20 mg PO Daily naltrexone 50 mg daily Abilify 10 m g PO QPM Neurontin 300 mg by mouth 2 times a day Trazodone 100 mg by mouth daily at bedtime Use [place] for abstinence Prescriptions/Medication Reconciliation: Naltrexone [Revia] 50 mg PO DAILY #30 tab
[2017-06-28] MEDS ORDERED: Pneumococcal 23-Valent Vaccine IM ONE (10:00)
[2017-06-28] MEDS ORDERED: Influenza Vaccine 60 mcg/0.5 mL SYR (4YR UP) IM ONE (10:00)
[2017-06-29 00:22] VITALS: O2SAT 95
== END 2017-06-28 11:03 | disposition home or self-care (01) | DRG 430 ==
LOC: C.ER 22:07 → C.5E 06-25 01:35
PROC: GZHZZZZ Group Psychotherapy (ICD-10-PCS; principal; 2017-06-25)
PROC: GZ58ZZZ Individual Psychotherapy, Cognitive-Behavioral (ICD-10-PCS; 2017-06-25)
PROC: GZ56ZZZ Individual Psychotherapy, Supportive (ICD-10-PCS; 2017-06-25)
PROC: HZ46ZZZ Group Counseling for Substance Abuse Treatment, Psychoeducation (ICD-10-PCS; 2017-06-25)
DX: F31.64 Bipolar disorder, current episode mixed, severe, with psychotic features (principal); F14.20 Cocaine dependence, uncomplicated; R45.851 Suicidal ideations; F10.239 Alcohol dependence with withdrawal, unspecified; B19.20 Unspecified viral hepatitis C without hepatic coma; F12.90 Cannabis use, unspecified, uncomplicated; F41.0 Panic disorder [episodic paroxysmal anxiety]; I10 Essential (primary) hypertension; I25.10 Atherosclerotic heart disease of native coronary artery without angina pectoris; Z79.899 Other long term (current) drug therapy; Z86.73 Personal history of transient ischemic attack (TIA), and cerebral infarction without residual deficits

== ENCOUNTER 2017-10-08 06:51 | Emergency (ER) | payer MEDICAID ==
[2017-10-08 06:56] VITALS: RESP 18; TEMP 98.8
--- NOTE | 2017-10-08 07:59 | C.PDOC ---
History Of Present Illness 57 years old male with history of anxiety and bipolar disorder presents to ED for complaints of feeling anxious and not being able to sleep. Patient reports experiencing a panic attack today. Patient states he ran out of medication 5 days ago and was unable to see a doctor. Denies any other physical complaints. (Lizzy Solano) History Per: Patient History/Exam Limitations: no limitations Onset/Duration Of Symptoms: Hrs Current Symptoms Are (Timing): Still Present Suicide/Self Injury Attempted (Context): None Modifying Factor(s): None Associated Symptoms: Anxiety. denies: Suicidal Thoughts, Suicidal Plan Involuntary Hold By: None Recent travel outside of the [place]: No Time Seen by Provider: 10/08/17 07:17 Chief Complaint (Nursing): Anxiety Past Medical History Reviewed: Historical Data, Nursing Documentation, Vital Signs - Medical History PMH: Anxiety, Bipolar Disorder, Bronchitis, Depression, Gastrointestinal Ulcer, Pneumonia, Schizophrenia, Seizures (ETOH related) Surgical History: Appendectomy (1999) Family History: States: Unknown Family Hx - Social History Hx Tobacco Use: No Hx Alcohol Use: Yes Hx Substance Use: Yes - Immunization History Hx Tetanus Toxoid Vaccination: No Hx Influenza Vaccination: No Hx Pneumococcal Vaccination: No Vital Signs: Last Vital Signs Temp 98.8 F 10/08/17 06:54 Pulse 70 10/08/17 08:40 Resp 18 10/08/17 08:40 BP 127/88 10/08/17 08:40 Pulse Ox 98 10/08/17 08:48 - [facility] DETOXIFICATION SERVICES FOR SUBSTANCE ABUSE TREATMENT (05/21/17) GROUP GENERAL PRODUCTION WORKER FOR SUBSTANCE ABUSE TREATMENT, PSYCHOEDUCATION (06/25/17) GROUP GENERAL PRODUCTION WORKER FOR SUBSTANCE ABUSE, COGNITIVE BEHAVIORAL (02/13/17) GROUP PSYCHOTHERAPY (06/25/17) INDIV PSYCHOTHERAPY FOR SUBSTANCE ABUSE TREATMENT, SUPPORT (02/13/17) INDIV PSYCHOTHERAPY FOR SUBSTANCE ABUSE, COGNITIV BEHAVIORAL (02/13/17) INDIV PSYCHOTHERAPY FOR SUBSTANCE ABUSE, PSYCHOEDUCATION (02/13/17) INDIVIDUAL PSYCHOTHERAPY, COGNITIVE-BEHAVIORAL (06/25/17) INDIVIDUAL PSYCHOTHERAPY, SUPPORTIVE (06/25/17) MEDS MGMT FOR SUBSTANCE ABUSE TREATMENT, ANTABUSE (04/08/17) PSYCHIAT DRUG THERAP NEC (12/05/14) VACCINATION NEC (12/16/14) Review Of Systems Constitutional: Negative for: Fever, Chills Gastrointestinal: Negative for: Nausea, Vomiting, Abdominal Pain, Diarrhea Skin: Negative for: Rash Neurological: Negative for: Weakness, Numbness Psych: Positive for: Anxiety. Negative for: Suicidal ideation Physical Exam - Physical Exam Appears: Non-toxic, Other (Anixous) Skin: Warm, Dry, No Rash Head: Atraumatic, Normacephalic Eye(s): bilateral: Normal Inspection, EOMI Oral Mucosa: Moist Neck: Normal ROM, Supple Chest: Symmetrical, No Tenderness Cardiovascular: Rhythm Regular Respiratory: No Decreased Breath Sounds, No Rales, No Rhonchi, No Wheezing Gastrointestinal/Abdominal: Soft, No Tenderness, No Guarding Extremity: Bilateral: Atraumatic, Normal Color And Temperature, Normal ROM Neurological/Psych: Oriented x3, Normal Speech Gait: Steady ED Course And Treatment O2 Sat by Pulse Oximetry: 98 (RA) Pulse Ox Interpretation: Normal Medical Decision Making Medical Decision Making: Plan: Xanax and lexapro administered. Called crisis for patient FIORDALIZA Diamond evaluated patient and contacted DR Smith who has not seen the patient since discharge in June of this year. Arrangements made for patient to be seen at [facility] and get medications there and follow up. (Lizzy Solano) Disposition Counseled Patient/Family Regarding: Need For Followup - Disposition Disposition Time: 08:35 - POA Present On Arrival: None - Disposition Disposition: HOME/ ROUTINE Condition: GOOD Additional Instructions: Please follow up at [facility] [address] [place] [address] Instructions: Anxiety, Adult (DC) Forms: [employer] (Mohawk) - Clinical Impression Clinical Impression: Anxiety disorder - PA / [employer] / Resident Statement MD/DO has reviewed & agrees with the documentation as recorded. - Scribe Statement The provider has reviewed the documentation as recorded by the Scribe - Scribe Statement Jordana Cruz All medical record entries made by the Scribe were at my direction and personally dictated by me. I have reviewed the chart and agree that the record accurately reflects my personal performance of the history, physical exam, medical decision making, and the department course for this patient. I have also personally directed, reviewed, and agree with the discharge instructions and disposition. (Lizzy Solano)
[2017-10-08 08:45] VITALS: BP 127/88; PULSE 70
[2017-10-08 08:48] VITALS: O2SAT 98
== END 2017-10-08 08:41 | disposition home or self-care (01) ==
LOC: C.ER 06:51
DX: F41.9 Anxiety disorder, unspecified (principal); F20.9 Schizophrenia, unspecified

== ENCOUNTER 2017-11-03 11:49 | Emergency (ER) | payer MEDICAID ==
[2017-11-03 12:19] VITALS: BP 106/70; PULSE 76; RESP 18; TEMP 98.2; O2SAT 98
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
== END 2017-11-03 13:47 | disposition home or self-care (01) ==
LOC: C.ER 11:49
DX: F41.9 Anxiety disorder, unspecified (principal)

== ENCOUNTER 2017-11-09 13:58 | Emergency (ER) | payer MEDICAID ==
[2017-11-09] MEDS ORDERED: Albuterol-Ipratrop 3 mg / 0.5 (3 ml) UD ONE ×2 (14:12→14:40)
[2017-11-09 14:19] VITALS: TEMP 98.2
[2017-11-09] MEDS ORDERED: Albuterol-Ipratrop 3 mg / 0.5 (3 ml) UD INH STA ×3 (14:24)
[2017-11-09] MEDS ORDERED: MethylPREDNISolone 40 mg Vial IVP STA (14:24)
--- NOTE | 2017-11-09 14:25 | C.PDOC ---
History Of Present Illness 57 YO MALE, HX of bronchitis, pysch, presetns iwth sob x 1 day .c/o of dry cough. no c/o of pain. no h/o of asthma. does not smoke. no fevers or other complaints Time Seen by Provider: 11/09/17 14:12 Chief Complaint (Nursing): Shortness Of Breath Past Medical History Reviewed: Historical Data, Nursing Documentation, Vital Signs Vital Signs: Last Vital Signs Temp 98.2 F 11/09/17 15:55 Pulse 83 11/09/17 15:55 Resp 20 11/09/17 15:55 BP 117/72 11/09/17 15:55 Pulse Ox 100 11/09/17 15:55 - Medical History PMH: Anxiety, Bipolar Disorder, Bronchitis, Depression, Gastrointestinal Ulcer, Pneumonia, Schizophrenia, Seizures Denies: Diabetes, Hepatitis, HIV, HTN, Chronic Kidney Disease, Sexually Transmitted Disease Surgical History: Appendectomy (1999) - [facility] Procedures DETOXIFICATION SERVICES FOR SUBSTANCE ABUSE TREATMENT (05/21/17) GROUP GREEN MEAT GRADER FOR SUBSTANCE ABUSE TREATMENT, PSYCHOEDUCATION (06/25/17) GROUP GREEN MEAT GRADER FOR SUBSTANCE ABUSE, COGNITIVE BEHAVIORAL (02/13/17) GROUP PSYCHOTHERAPY (06/25/17) INDIV PSYCHOTHERAPY FOR SUBSTANCE ABUSE TREATMENT, SUPPORT (02/13/17) INDIV PSYCHOTHERAPY FOR SUBSTANCE ABUSE, COGNITIV BEHAVIORAL (02/13/17) INDIV PSYCHOTHERAPY FOR SUBSTANCE ABUSE, PSYCHOEDUCATION (02/13/17) INDIVIDUAL PSYCHOTHERAPY, COGNITIVE-BEHAVIORAL (06/25/17) INDIVIDUAL PSYCHOTHERAPY, SUPPORTIVE (06/25/17) MEDS MGMT FOR SUBSTANCE ABUSE TREATMENT, ANTABUSE (04/08/17) PSYCHIAT DRUG THERAP NEC (12/05/14) VACCINATION NEC (12/16/14) Family History: States: Unknown Family Hx - Social History Hx Tobacco Use: No Hx Alcohol Use: No Hx Substance Use: No - Immunization History Hx Tetanus Toxoid Vaccination: No Hx Influenza Vaccination: No Hx Pneumococcal Vaccination: No Review Of Systems Respiratory: Positive for: Cough, Shortness of Breath, Wheezing Physical Exam - Physical Exam Appears: Well, No Acute Distress Skin: Normal Color, Warm, Dry Eye(s): bilateral: Normal Inspection, PERRL, EOMI Nose: Normal Throat: Normal Neck: Normal Cardiovascular: Rhythm Regular Respiratory: Normal Breath Sounds, Rhonchi (diffuse), Wheezing Gastrointestinal/Abdominal: Normal Exam, Soft, No Tenderness, No Guarding, No Rebound Back: Normal Inspection Extremity: Normal ROM ED Course And Treatment - Laboratory Results Result Diagrams: 11/09/17 14:36 11/09/17 14:36 O2 Sat by Pulse Oximetry: 94 Medical Decision Making Medical Decision Making: suspect asthmatic bronchitits r/o pna 400: pt reassesed wheezing nearly resolved. pt offered further obs. declines. asking for dc. advise close outpt fu and return precautions. Disposition - Disposition Referrals: [facility] [Outside] [facility] [Outside] [facility] [Outside] Disposition: HOME/ ROUTINE Disposition Time: 03:00 Condition: STABLE Additional Instructions: please follow up with your doctor. return to er with worsening symptoms or concerns. Prescriptions: Albuterol 0.083% [Albuterol 0.083% Inhal Annelise (2.5 mg/3 ml) UD] 2.5 mg IH Q4 PRN #20 neb PRN Reason: Wheezing Mask, Face [Nebulizer Aerosol Mask Adult] 1 dev XX PRN PRN #1 dev PRN Reason: Wheezing Nebulizer [Aeroeclipse II] 1 each MC Q4 PRN #1 each PRN Reason: Wheezing Prednisone 50 mg PO DAILY #5 tablet Instructions: Asthma in Adults, Acute Bronchitis Forms: [employer] (Irish) - Clinical Impression Clinical Impression: Asthmatic bronchitis
[2017-11-09 14:43] LABS: BASO # 0.1 K/uL (0.0-0.2); BASO % 0.7 % (0.0-2.0); EOS # 0.2 K/uL (0.0-0.7); EOS % 2.9 % (0.0-4.0); HEMOGLOBIN 15.7 g/dL (12.0-18.0); LYMPH # 2.1 K/uL (1.0-4.3); MEAN CELL VOLUME 93.6 fL (80.0-94.0); MEAN CORPUSCULAR HEMOGLOBIN 32.6 pg (27.0-31.0); MEAN CORPUSCULAR HGB CONC 34.8 g/dL (33.0-37.0); MEAN PLATELET VOLUME 8.8 fL (7.2-11.7); MONO # 0.5 K/uL (0.0-0.8); MONO % 7.3 % (0.0-10.0); NEUT # 4.4 K/uL (1.8-7.0); NEUT % 60.1 % (50.0-75.0); NRBC % 0.1 % (0.0-2.0); RBC 4.83 Mil/uL (4.40-5.90); WHITE BLOOD COUNT 7.3 K/uL (4.8-10.8)
[2017-11-09 14:51] LABS: ALB/GLOB RATIO 1.5 (1.0-2.1); ALBUMIN 4.5 g/dL (3.5-5.0); ALT/SGPT 29 U/L (21-72); AST/SGOT 26 U/L (17-59); BLOOD UREA NITROGEN 14 mg/dL (9-20); CALCIUM 9.2 mg/dl (8.6-10.4); GFR AFRICAN-AMERICAN > 60; GFR NON-AFRICAN AMERICAN > 60
[2017-11-09 14:52] LABS: PROTHROMBIN TIME 11.2 SECONDS (9.7-12.2)
[2017-11-09 15:03] LABS: B-TYPE NATRIURETIC PEPTIDE 61.7 pg/mL (0-900)
--- NOTE | 2017-11-09 15:31 | RAD ---
HISTORY: chest pain COMPARISON: Comparison chest 04/08/2017 TECHNIQUE: Chest PA and lateral FINDINGS: LUNGS: No active pulmonary disease. PLEURA: No significant pleural effusion identified. No pneumothorax apparent. There appears to be some minor biapical pleural thickening. CARDIOVASCULAR: Normal. OSSEOUS STRUCTURES: No significant abnormalities. VISUALIZED UPPER ABDOMEN: Normal. OTHER FINDINGS: None. IMPRESSION: No active disease.
[2017-11-09 16:11] VITALS: BP 117/72; PULSE 83; RESP 20
[2017-11-09 17:13] VITALS: O2SAT 94
== END 2017-11-09 15:58 | disposition home or self-care (01) ==
LOC: C.ER 13:58
DX: J45.909 Unspecified asthma, uncomplicated (principal)
CPT/HCPCS: 71046; 80053; 83880; 84484; 85025; 85610; 85730; 94640; 96374; 99285; J2920

== ENCOUNTER 2017-12-11 13:56 | Emergency (ER) | payer MEDICAID ==
[2017-12-11] MEDS ORDERED: Albuterol-Ipratrop 3 mg / 0.5 (3 ml) UD INH STA (14:32)
[2017-12-11] MEDS ORDERED: Albuterol-Ipratrop 3 mg / 0.5 (3 ml) UD ONE (14:34)
[2017-12-11 16:57] VITALS: O2SAT 99
[2017-12-11 17:02] VITALS: PULSE 69
--- NOTE | 2017-12-11 17:31 | C.PDOC ---
History Of Present Illness 57 y/o male with history of Asthma presents to ED with c/o sob and chest pain consistent with asthma exacerbation. Patient states he has tried inhaler at home with no improvement. Patient has multiple prior ED visits for evaluation of Anxiety and Asthma related symptoms. Patient denies fever, chills, nausea, vomiting, cough or any other complaints at this time. Time Seen by Provider: 12/11/17 15:40 Chief Complaint (Nursing): Shortness Of Breath History Per: Patient History/Exam Limitations: no limitations Onset/Duration Of Symptoms: Days Current Symptoms Are (Timing): Still Present Initiating Event: Upper Respiratory Illness Past Medical History Reviewed: Historical Data, Nursing Documentation, Vital Signs Vital Signs: Last Vital Signs Temp 99.0 F 12/11/17 17:01 Pulse 69 12/11/17 17:01 Resp 18 12/11/17 17:01 BP 107/70 12/11/17 17:01 Pulse Ox 99 12/11/17 17:34 - Medical History PMH: Anxiety, Bipolar Disorder, Bronchitis, Depression, Gastrointestinal Ulcer, Pneumonia, Schizophrenia, Seizures Surgical History: Appendectomy (1999) - [facility] Procedures DETOXIFICATION SERVICES FOR SUBSTANCE ABUSE TREATMENT (05/21/17) GROUP LABEL FOLDER FOR SUBSTANCE ABUSE TREATMENT, PSYCHOEDUCATION (06/25/17) GROUP LABEL FOLDER FOR SUBSTANCE ABUSE, COGNITIVE BEHAVIORAL (02/13/17) GROUP PSYCHOTHERAPY (06/25/17) INDIV PSYCHOTHERAPY FOR SUBSTANCE ABUSE TREATMENT, SUPPORT (02/13/17) INDIV PSYCHOTHERAPY FOR SUBSTANCE ABUSE, COGNITIV BEHAVIORAL (02/13/17) INDIV PSYCHOTHERAPY FOR SUBSTANCE ABUSE, PSYCHOEDUCATION (02/13/17) INDIVIDUAL PSYCHOTHERAPY, COGNITIVE-BEHAVIORAL (06/25/17) INDIVIDUAL PSYCHOTHERAPY, SUPPORTIVE (06/25/17) MEDS MGMT FOR SUBSTANCE ABUSE TREATMENT, ANTABUSE (04/08/17) PSYCHIAT DRUG THERAP NEC (12/05/14) VACCINATION NEC (12/16/14) Family History: States: No Known Family Hx - Social History Hx Tobacco Use: No Hx Alcohol Use: No Hx Substance Use: No - Immunization History Hx Tetanus Toxoid Vaccination: No Hx Influenza Vaccination: No Hx Pneumococcal Vaccination: No Review Of Systems Constitutional: Negative for: Fever, Chills Cardiovascular: Positive for: Chest Pain Respiratory: Positive for: Shortness of Breath. Negative for: Cough Gastrointestinal: Negative for: Nausea, Vomiting Skin: Negative for: Rash Physical Exam - Physical Exam Appears: Non-toxic, No Acute Distress, Other (Patient noted to be sleeping and easily arousable) Skin: Warm, Dry, No Rash Head: Atraumatic, Normacephalic Eye(s): bilateral: Normal Inspection Oral Mucosa: Moist Neck: Supple Cardiovascular: Rhythm Regular Respiratory: No Rales, No Rhonchi, Wheezing (occasional expiratory) Gastrointestinal/Abdominal: Soft, No Tenderness, No Guarding, No Rebound Extremity: No Pedal Edema, Capillary Refill (<2 seconds) Neurological/Psych: Oriented x3, Normal Speech, Normal Cognition ED Course And Treatment O2 Sat by Pulse Oximetry: 99 (RA) Pulse Ox Interpretation: Normal Disposition Counseled Patient/Family Regarding: Diagnosis, Need For Followup, Rx Given - Disposition Referrals: YOUR,PMD [Other] Disposition: HOME/ ROUTINE Disposition Time: 17:38 Condition: IMPROVED Prescriptions: predniSONE [Prednisone] 60 mg PO DAILY #12 tab Instructions: Asthma, Adult (DC) Forms: [employer] (Dominican) - Clinical Impression Clinical Impression: Asthma exacerbation, mild - Scribe Statement The provider has reviewed the documentation as recorded by the Dayaibsenthil Campos All medical record entries made by the Dayaibsenthil were at my direction and personally dictated by me. I have reviewed the chart and agree that the record accurately reflects my personal performance of the history, physical exam, medical decision making, and the department course for this patient. I have also personally directed, reviewed, and agree with the discharge instructions and disposition.
[2017-12-11 17:51] VITALS: BP 117/80; RESP 16; TEMP 98.5
--- NOTE | 2017-12-15 23:57 | CARD ---
APPROVED REPORT Date of service: 12/11/2017 EKG Measurement Heart [id number] <Conclusion> Normal sinus rhythm Possible Left atrial enlargement Borderline ECG
== END 2017-12-11 17:51 | disposition home or self-care (01) ==
LOC: C.ER 13:56
DX: J45.901 Unspecified asthma with (acute) exacerbation (principal); F20.9 Schizophrenia, unspecified